=== PATIENT | female | born 1935 | race Caucasian/White ===

== ENCOUNTER 2016-06-03 17:39 | Inpatient (IN) ==
[~2016-06-03 17:39] MED LIST: Aminoglycoside Consult 1 EACH MC ONE
[2016-06-03 18:55] LABS: Magnesium 2.1 mg/dL (1.6-2.6); Phosphorous 2.7 mg/dL (2.3-4.7)
--- NOTE | 2016-06-03 19:01 | Emergency Department Note ---
Disposition Clinical Impression: Sepsis, UTI (urinary tract infection), Elevated troponin, Pneumonia, Severe sepsis with acute organ dysfunction, Acute kidney injury Altered mental state Qualifiers: Altered mental status type: unspecified Qualified Code(s): R41.82 - Altered mental status, unspecified Leukocytosis Qualifiers: Leukocytosis type: unspecified Qualified Code(s): D72.829 - Elevated white blood cell count, unspecified Disposition: Admitted As Inpatient Condition: Serious Time of Disposition: 19:00 General Adult HPI - General Chief complaint: ED Shortness of Breath/Dyspnea Stated complaint: YUSUF/lethargic Time Seen by Provider: 06/03/16 17:59 Source: EMS Limitations: no limitations Nursing Notes Reviewed: Yes Vital Signs Reviewed: Yes - History of Present Illness HPI Narrative: Patient is an 81-year-old female who [facility] with concern for possible infection. Her lab work today showed a leukocytosis of 25 with a shift. Concern for possible pneumonia versus urinary tract infection. Also state patient has had some lethargy and has been less responsive. 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 Patient is able to verbalize her name and where she is out. She does not know the date. Patient is normally able to talk more than she is today. She is able to nod her head yes and no and tells me no when asked if she is in any pain. Onset (ago): Just [employer] Pain Scale: 4 Improves with: nothing Worsens with: nothing Associated symptoms: Reports: denies other symptoms, fever/chills (subjective). Denies: chest pain, cough, diaphoresis, nausea/vomiting, shortness of breath Treatments Prior to Arrival: none - Related Data Home Medications Medication Instructions Recorded Confirmed Alprazolam [Xanax 0.25 MG Tablet] 0.25 mg PO Q4H PRN 11/03/14 06/03/16 Alprazolam [Xanax 0.5 MG Tablet] 0.5 mg PO HS 11/03/14 06/03/16 Fluticasone Propionate Nasal 1 spray NS DAILY 11/03/14 06/03/16 [Flonase] Furosemide [Lasix] 40 mg PO DAILY 11/03/14 06/03/16 HYDROcodone/Acet 5/325 mg [[place] 1 tab PO Q4HR PRN 11/03/14 06/03/16 5-325 mg] Insulin ASPART [NovoLOG] 2 - 10 unit SQ ACHS 11/03/14 06/03/16 Insulin Glargine,Hum.rec.anlog 50 unit SQ HS 11/03/14 06/03/16 [Lantus Solostar] Insulin NPH Hum/Reg Insulin Hm 45 unit SQ QAM 11/03/14 06/03/16 [Humulin 70-30 Vial] Latanoprost [Xalatan] 1 drop BOTH EYES HS 11/03/14 06/03/16 Levothyroxine [Synthroid] 25 mcg PO 0630 11/03/14 06/03/16 Magnesium Oxide [Mag-Ox] 400 mg PO BID 11/03/14 06/03/16 Montelukast [Singulair] 10 mg PO HS 11/03/14 06/03/16 Multivit-Min/FA/Ca Carb/Vit K 1 each PO DAILY 11/03/14 06/03/16 [Women's 50+ Daily Tablet] RisperiDONE [RisperDAL] 0.25 mg PO DAILY 11/03/14 06/03/16 Sertraline [Zoloft] 150 mg PO DAILY 11/03/14 06/03/16 Tiotropium [Spiriva] 18 mcg IH DAILY 11/03/14 06/03/16 Tolterodine Tartrate [Detrol] 2 mg PO BID #0 11/03/14 06/03/16 Zolpidem [Ambien] 10 mg PO HS PRN 11/03/14 06/03/16 Ascorbic Acid [Vitamin C] 500 mg PO BID 11/17/14 06/03/16 Cholecalciferol (Vitamin D3) 1,000 unit PO DAILY 11/17/14 06/03/16 [Vitamin D3] Ipratropium/Albuterol Neb [Duoneb] 3 ml IH TID 11/17/14 06/03/16 Omeprazole [PriLOSEC] 20 mg PO DAILY PRN 11/17/14 06/03/16 Potassium Chloride 10 meq PO DAILY 11/17/14 06/03/16 Benzocaine/Menthol Kobi [Cepacol 1 lozenge PO Q4H PRN 11/28/14 06/03/16 Sore Throat Lozenge] GuaiFENesin Liq [Robitussin Liq] 300 mg PO Q6HR PRN 11/28/14 06/03/16 Loratadine [Claritin] 10 mg PO DAILY PRN 11/28/14 06/03/16 Acetaminophen [Tylenol] 650 mg PO Q6H PRN 02/11/15 06/03/16 Acetylcysteine 600 mg PO TID 02/11/15 06/03/16 [J-Zhccpd-t-Cysteine] Alprazolam [Xanax 0.25 MG Tablet] 0.25 mg PO TID 02/11/15 06/03/16 DiphenhydraMINE [Benadryl] 25 mg PO Q6H PRN 02/11/15 06/03/16 L. Rhamnosus GG/Inulin [Culturelle 1 cap PO BID 02/11/15 06/03/16 Capsule] Simethicone [Gas-X] 80 mg PO BID PRN 02/11/15 06/03/16 Propylene Glycol/Peg 400 [Systane 1 drop BOTH EYES BID PRN 05/20/15 06/03/16 Gel Eye Drops] Propylene Glycol/Peg 400 [Systane 1 drop BOTH EYES Q4H PRN 05/20/15 06/03/16 Gel Eye Drops] Albuterol Neb [Proventil Neb] 2.5 mg IH Q2H PRN 06/03/16 06/03/16 Carvedilol 12.5 mg PO BID 06/03/16 06/03/16 Docusate [Colace] 100 mg PO BID 06/03/16 06/03/16 Fluticasone/Salmeterol [Advair 1 each IH BID 06/03/16 06/03/16 250-50 Diskus] Glimepiride [Amaryl] 1 mg PO QAM 06/03/16 06/03/16 Previous Rx's Medication Instructions Recorded Ferrous Sulfate 325 mg PO BIDWM #60 tablet 04/12/16 Allergies Allergy/AdvReac Type Severity Reaction Status Date / Time codeine Allergy unknown Verified 11/17/15 10:43 Penicillins Allergy unknown Verified 11/17/15 10:43 All systems ED: reviewed and negative except as stated. Past Medical History - Past Medical History Attestation: Yes The following information was validated with the patient. Source: patient Medical history: Reports: diabetes, glaucoma, renal disease Surgical history: Reports: other Psychiatric history: Reports: no psych history - Social History Smoking Status: Unknown if ever smoked Smokeless Tobacco Status: No Alcohol use: Reports: none Drug use: Reports: none Physical Exam - General Limitations: no limitations General appearance: alert, obese - Head Head exam: atraumatic, normocephalic, normal inspection - Eye Eye exam: Present: normal appearance, PERRL, EOMI - ENT ENT exam: normal exam, normal oropharynx, mucous membranes moist - Neck Neck exam: Present: normal inspection, full ROM, trachea midline - Chest Chest inspection: Present: normal inspection, symmetric chest wall rise - Respiratory Respiratory exam: Present: other (Course breath sounds bilaterally) - Cardiovascular Cardiovascular exam: Present: regular rate, normal rhythm, normal heart sounds - Abdominal Exam Abdominal exam: Present: soft, Non-Tender. Absent: tenderness, distention, guarding, rebound, rigidity - Extremities Exam Extremities exam: Present: normal inspection, full ROM. Absent: tenderness, pedal edema - Back Exam Back exam: Present: normal inspection, full ROM. Absent: tenderness - Neurological Exam Neurological exam: Present: alert - Psychiatric Psychiatric exam: Present: flat affect - Skin Skin exam: Present: warm, dry, intact, normal color Course Course Narrative: Patient seen and examined. [facility]. Has trach in place. Apparently has some altered mentation in that she is not speaking as much as she normally does. Concern from [facility]iary for infection. A septic workup initiated. - Reevaluation(s) Reevaluation #1: Labs, imaging pending. Patient signed out to oncoming resident Dr. Villa. Time: 19:00 Vital Signs Temperature 98.8 F 06/03/16 17:43 Pulse Rate 96 06/03/16 17:43 Respiratory Rate 18 06/03/16 17:43 Blood Pressure 110/82 06/03/16 17:43 O2 Sat by Pulse Oximetry 98 06/03/16 17:43 Temperature 98.3 F 06/06/16 16:09 Pulse Rate 84 06/06/16 16:09 Respiratory Rate 18 06/06/16 16:09 Blood Pressure 123/69 06/06/16 16:09 O2 Sat by Pulse Oximetry 95 06/06/16 16:09 Oxygen Delivery Oxygen Delivery Ventilator Medical Decision Making - Medical Records Medical records reviewed: Yes I reviewed the patient's medical records. - Lab Data Lab results reviewed: Yes I reviewed the patient's lab results. Result diagrams: 06/06/16 06:34 06/06/16 09:23 Lab Results 06/03/16 06/03/16 06/03/16 Range/Units 18:29 18:29 18:29 WBC (4.3-11.1) K/mcL RBC (3.82-4.97) M/mcL Hgb (11.5-15.4) g/dL Hct (35.3-44.9) % MCV (83.0-100.0) fL MCH (28.0-33.3) pg MCHC (31.6-35.5) g/dL RDW (11.5-14.5) % Plt Count (140-400) K/mcL MPV (9.4-12.4) fL Immature Gran % (0-4) % Seg Neutrophils % % Lymphocytes % % Monocytes % % Eosinophils % % Basophils % % Neutrophils # (1.6-8.9) K/mcL Lymphocytes # (0.6-4.6) K/mcL Monocytes # (0.0-1.3) K/mcL Eosinophils # (0.0-0.6) K/mcL Basophils # (0.0-0.2) K/mcL Sodium (136-145) mEq/L Potassium (3.5-4.5) mEq/L Chloride (98-109) mEq/L Carbon Dioxide (19-29) mEq/L BUN (7-20) mg/dL Creatinine (0.57-1.11) mg/dL Est GFR ( Amer) (> 60) Est GFR (Non-Af Amer) (> 60) BUN/Creatinine Ratio (6-26) Glucose (70-99) mg/dL Calculated Osmolality (280-300) Lactic Acid 1.4 (0.5-2.2) mmol/L Calcium (8.6-10.8) mg/dL Phosphorus 2.7 (2.3-4.7) mg/dL Magnesium 2.1 (1.6-2.6) mg/dL Troponin I 0.04 H* (0-0.03) ng/mL B-Natriuretic Peptide (0-100) pg/mL Urine Color (Yellow) Urine Clarity (Clear) Urine pH (5.0-8.0) pH Units Ur Specific [place] (1.010-1.025) Urine Protein (Neg-Trace) mg/dL Urine Glucose (UA) (Normal) mg/dL Urine Ketones (Negative) mg/dL Urine Blood (Negative) Urine Nitrite (Negative) Urine Bilirubin (Negative) Urine Urobilinogen (Normal) mg/dL Ur Leukocyte Esterase (Negative) Urine Microscopic RBC (0-3) per hpf Urine Microscopic WBC (0-3) per hpf Ur Squamous Epith Cells (None-Few) per lpf Calcium Oxalate Crystal Other Crystals Urine Bacteria (None-Few) per hpf Hyaline Casts (None-Few) per lpf Urine Starch Urine Yeast (None Seen) per hpf Ur Culture Indicated? (NO) 06/03/16 06/03/16 06/03/16 Range/Units 18:29 18:29 18:29 WBC 18.8 H (4.3-11.1) K/mcL RBC 4.13 (3.82-4.97) M/mcL Hgb 11.3 L (11.5-15.4) g/dL Hct 35.8 (35.3-44.9) % MCV 86.7 (83.0-100.0) fL MCH 27.4 L (28.0-33.3) pg MCHC 31.6 (31.6-35.5) g/dL RDW 17.0 H (11.5-14.5) % Plt Count 234 (140-400) K/mcL MPV 10.3 (9.4-12.4) fL Immature Gran % 0.5 (0-4) % Seg Neutrophils % 84.3 % Lymphocytes % 7.5 % Monocytes % 7.5 % Eosinophils % 0.1 % Basophils % 0.1 % Neutrophils # 15.8 H (1.6-8.9) K/mcL Lymphocytes # 1.4 (0.6-4.6) K/mcL Monocytes # 1.4 H (0.0-1.3) K/mcL Eosinophils # 0.0 (0.0-0.6) K/mcL Basophils # 0.0 (0.0-0.2) K/mcL Sodium 134 L (136-145) mEq/L Potassium 4.5 D (3.5-4.5) mEq/L Chloride 96 L (98-109) mEq/L Carbon Dioxide 24 (19-29) mEq/L BUN 58 H D (7-20) mg/dL Creatinine 3.39 H (0.57-1.11) mg/dL Est GFR ( Amer) 16 L (> 60) Est GFR (Non-Af Amer) 13 L (> 60) BUN/Creatinine Ratio 17 (6-26) Glucose 169 H (70-99) mg/dL Calculated Osmolality 298 (280-300) Lactic Acid (0.5-2.2) mmol/L Calcium 9.3 (8.6-10.8) mg/dL Phosphorus (2.3-4.7) mg/dL Magnesium (1.6-2.6) mg/dL Troponin I (0-0.03) ng/mL B-Natriuretic Peptide 75 (0-100) pg/mL Urine Color (Yellow) Urine Clarity (Clear) Urine pH (5.0-8.0) pH Units Ur Specific [place] (1.010-1.025) Urine Protein (Neg-Trace) mg/dL Urine Glucose (UA) (Normal) mg/dL Urine Ketones (Negative) mg/dL Urine Blood (Negative) Urine Nitrite (Negative) Urine Bilirubin (Negative) Urine Urobilinogen (Normal) mg/dL Ur Leukocyte Esterase (Negative) Urine Microscopic RBC (0-3) per hpf Urine Microscopic WBC (0-3) per hpf Ur Squamous Epith Cells (None-Few) per lpf Calcium Oxalate Crystal Other Crystals Urine Bacteria (None-Few) per hpf Hyaline Casts (None-Few) per lpf Urine Starch Urine Yeast (None Seen) per hpf Ur Culture Indicated? (NO) 06/03/16 Range/Units 19:05 WBC (4.3-11.1) K/mcL RBC (3.82-4.97) M/mcL Hgb (11.5-15.4) g/dL Hct (35.3-44.9) % MCV (83.0-100.0) fL MCH (28.0-33.3) pg MCHC (31.6-35.5) g/dL RDW (11.5-14.5) % Plt Count (140-400) K/mcL MPV (9.4-12.4) fL Immature Gran % (0-4) % Seg Neutrophils % % Lymphocytes % % Monocytes % % Eosinophils % % Basophils % % Neutrophils # (1.6-8.9) K/mcL Lymphocytes # (0.6-4.6) K/mcL Monocytes # (0.0-1.3) K/mcL Eosinophils # (0.0-0.6) K/mcL Basophils # (0.0-0.2) K/mcL Sodium (136-145) mEq/L Potassium (3.5-4.5) mEq/L Chloride (98-109) mEq/L Carbon Dioxide (19-29) mEq/L BUN (7-20) mg/dL Creatinine (0.57-1.11) mg/dL Est GFR ( Amer) (> 60) Est GFR (Non-Af Amer) (> 60) BUN/Creatinine Ratio (6-26) Glucose (70-99) mg/dL Calculated Osmolality (280-300) Lactic Acid (0.5-2.2) mmol/L Calcium (8.6-10.8) mg/dL Phosphorus (2.3-4.7) mg/dL Magnesium (1.6-2.6) mg/dL Troponin I (0-0.03) ng/mL B-Natriuretic Peptide (0-100) pg/mL Urine Color Dark Yellow (Yellow) Urine Clarity Turbid A (Clear) Urine pH 7.0 (5.0-8.0) pH Units Ur Specific [place] 1.017 (1.010-1.025) Urine Protein 100 H (Neg-Trace) mg/dL Urine Glucose (UA) Normal (Normal) mg/dL Urine Ketones Trace H (Negative) mg/dL Urine Blood Large H (Negative) Urine Nitrite Negative (Negative) Urine Bilirubin Small H (Negative) Urine Urobilinogen Normal (Normal) mg/dL Ur Leukocyte Esterase Large H (Negative) Urine Microscopic RBC TNTC H (0-3) per hpf Urine Microscopic WBC TNTC H (0-3) per hpf Ur Squamous Epith Cells Many H (None-Few) per lpf Calcium Oxalate Crystal Present Other Crystals Present Urine Bacteria Many H (None-Few) per hpf Hyaline Casts Moderate H (None-Few) per lpf Urine Starch Present Urine Yeast Moderate H (None Seen) per hpf Ur Culture Indicated? YES A (NO) - Radiology Data Radiology results reviewed: Yes I reviewed the patient's radiology results. Chest X-Ray 06/03/16 17:59 IMPRESSION: No significant change in the appearance of the chest with reticular opacities that may represent chronic lung change. D/ / Bryant Santillan MD / Bryant Santillan MD Interpreting Provider: Bryant Santillan MD - EKG Data EKG #1 EKG attestation: Yes I reviewed and interpreted this EKG. Attestation Statement - Attestation Attestation: I examined this patient and my medical decision-making was reviewed with the Resident Physician. I agree with the documented findings, disposition and treatment plan as described except to the extent set forth below. Evaluated by Dr. Donato and myself immediately upon arrival to ED. Hemodynamically stable. Work up initiated, pt checked out to Dr. Edouard at change of shift.
[2016-06-03 19:16] LABS: Bilirubin,Urine Small (Negative); Blood,Urine Large (Negative); Clarity,Urine Turbid (Clear); Color,Urine Dark Yellow (Yellow); Glucose,Urine (UA) Normal (Normal); Ketones,Urine Trace mg/dL (Negative); Leukocyte Esterase,Urine Large (Negative); Nitrite,Urine Negative (Negative); Protein,Urine 100 mg/dL (Neg-Trace); Specific Gravity,Urine 1.017 (1.010-1.025); Urobilinogen,Urine Normal (Normal)
[2016-06-03 19:18] LABS: Bacteria,Urine Many per hpf (None-Few); Hyaline Casts,Urine Moderate per lpf (None-Few); Squamous Epithelial Cell,Urine Many per lpf (None-Few); WBC,Urine TNTC per hpf (0-3)
[2016-06-03 19:38] LABS: RBC,Urine TNTC per hpf (0-3)
[2016-06-03 19:44] LABS: Basophils % 0.1 %; Eosinophils % 0.1 %; Hematocrit 35.8 % (35.3-44.9); Hemoglobin 11.3 g/dL (11.5-15.4); Immature Granulocytes % 0.5 % (0-4); Lymphocytes # 1.4 K/mcL (0.6-4.6); Lymphocytes % 7.5 %; Mean Corpuscular HGB Conc 31.6 g/dL (31.6-35.5); Mean Corpuscular Hemoglobin 27.4 pg (28.0-33.3); Mean Corpuscular Volume 86.7 fL (83.0-100.0); Mean Platelet Volume 10.3 fL (9.4-12.4); Monocytes # 1.4 K/mcL (0.0-1.3); Monocytes % 7.5 %; Neutrophils # 15.8 K/mcL (1.6-8.9); Platelet Count 234 K/mcL (140-400); Red Blood Count 4.13 M/mcL (3.82-4.97); Segmented Neutrophils % 84.3 %
[2016-06-03 19:44] LABS: Other Crystals,Urine Present
[2016-06-03 19:45] LABS: Calcium Oxalate Crystals,Urine Present
[2016-06-03 19:46] LABS: Yeast,Urine Moderate per hpf (None Seen)
[2016-06-03 19:53] LABS: Calcium 9.3 mg/dL (8.6-10.8); Potassium 4.5 mEq/L (3.5-4.5)
--- NOTE | 2016-06-03 19:55 | Emergency Department Note ---
Disposition Clinical Impression: Elevated troponin, Severe sepsis with acute organ dysfunction, Acute kidney injury Altered mental state Qualifiers: Altered mental status type: unspecified Qualified Code(s): R41.82 - Altered mental status, unspecified Leukocytosis Qualifiers: Leukocytosis type: unspecified Qualified Code(s): D72.829 - Elevated white blood cell count, unspecified Sepsis Qualifiers: Sepsis type: sepsis due to unspecified organism Qualified Code(s): A41.9 - Sepsis, unspecified organism UTI (urinary tract infection) Qualifiers: Urinary tract infection type: site unspecified Hematuria presence: without hematuria Qualified Code(s): N39.0 - Urinary tract infection, site not specified Pneumonia Qualifiers: Pneumonia type: due to unspecified organism Laterality: unspecified laterality Lung location: unspecified part of lung Qualified Code(s): J18.9 - Pneumonia, unspecified organism Disposition: Admitted As Inpatient Condition: Serious Referrals: NO,PCP [Primary Care Provider] - Forms: ED Satisfaction Letter Time of Disposition: 21:16 General Adult HPI - General Chief complaint: ED Shortness of Breath/Dyspnea Stated complaint: YUSUF/lethargic Time Seen by Provider: 06/03/16 17:59 Source: EMS Mode of arrival: ambulatory Limitations: no limitations Nursing Notes Reviewed: Yes Vital Signs Reviewed: Yes - History of Present Illness HPI Narrative: Patient was a sign out from the day team Dr. Donato and Dr. Pugh. Please see their notes for further details. Patient is 81 yo female with PMHx of chronic respiratory failure and trach dependent, type 2 diabetes, chronic kidney disease , glaucoma, arthritis, hyperlipidemia. She presents today as a transfer from [facility]. Patient had labwork recently done that showed an elevated white blood cell count of 25. She is also "not been acting like herself." She was transferred here due to altered mental status and fear of infection, possible pneumonia and UTI. On exam, patient is nonverbal, but she shakes her head no to chest pain, shortness of breath, nausea, vomiting, fevers , diarrhea, burning with urination. Labwork was underway when patient was signed out to me. She does have signs of UTI. Septic workup was underway. Pain Scale: 4 - Related Data Home Medications Medication Instructions Recorded Confirmed Alprazolam [Xanax 0.25 MG Tablet] 0.25 mg PO Q4H PRN 11/03/14 11/18/15 Alprazolam [Xanax 0.5 MG Tablet] 0.5 mg PO HS 11/03/14 11/18/15 Detrol 2 mg PO BID 11/03/14 11/18/15 Fluticasone Propionate Nasal 1 spray NS DAILY 11/03/14 11/18/15 [Flonase] Furosemide [Lasix] 40 mg PO DAILY 11/03/14 11/18/15 HYDROcodone/Acet 5/325 mg [[place] 1 tab PO Q4HR PRN 11/03/14 11/18/15 5-325 mg] Insulin ASPART [NovoLOG] 0 unit SQ TIDWM 11/03/14 11/18/15 Insulin Glargine,Hum.rec.anlog 60 unit SQ ONCE 11/03/14 11/18/15 [Lantus Solostar] Insulin NPH Hum/Reg Insulin Hm 50 unit SQ DAILY 11/03/14 11/18/15 [Humulin 70-30 Vial] Latanoprost [Xalatan] 1 drop RIGHT EYE HS 11/03/14 11/18/15 Levothyroxine [Synthroid] 25 mcg PO 0630 11/03/14 11/18/15 Magnesium Oxide [Mag-Ox] 400 mg PO BID 11/03/14 11/18/15 Montelukast [Singulair] 10 mg PO DAILY 11/03/14 11/18/15 Multivit-Min/FA/Ca Carb/Vit K 1 each PO DAILY 11/03/14 11/18/15 [Women's 50+ Daily Tablet] RisperiDONE [RisperDAL] 0.25 mg PO DAILY 11/03/14 11/18/15 Sertraline [Zoloft] 150 mg PO DAILY 11/03/14 11/18/15 Tiotropium [Spiriva] 18 mcg IH DAILY 11/03/14 11/18/15 Zolpidem [Ambien] 10 mg PO HS PRN 11/03/14 11/18/15 Ascorbic Acid [Vitamin C] 500 mg PO BID 11/17/14 11/18/15 Carvedilol [Coreg] 12.5 mg PO BID 11/17/14 11/18/15 Cholecalciferol (Vitamin D3) 1,000 unit PO BID 11/17/14 11/18/15 [Vitamin D3] Fluticasone/Salmeterol [Advair 1 each IH BID 11/17/14 11/18/15 100-50 Diskus] Ipratropium/Albuterol Neb [Duoneb] 3 ml IH Q6HR 11/17/14 11/18/15 Omeprazole [PriLOSEC] 20 mg PO DAILY 11/17/14 11/18/15 Potassium Chloride 10 meq PO DAILY 11/17/14 11/18/15 Benzocaine/Menthol Kobi [Cepacol 3 mg PO Q4H PRN 11/28/14 11/18/15 Sore Throat Lozenge] GuaiFENesin Liq [Robitussin Liq] 300 mg PO Q6HR PRN 11/28/14 11/18/15 Loratadine [Claritin] 10 mg PO DAILY 11/28/14 11/18/15 Acetaminophen [Tylenol] 650 mg PO Q6H PRN 02/11/15 11/18/15 Acetylcysteine 600 mg PO TID 02/11/15 11/18/15 [H-Ihvvbz-e-Cysteine] Alprazolam [Xanax 0.25 MG Tablet] 0.25 mg PO TID 02/11/15 11/18/15 DiphenhydraMINE [Benadryl] 1 tab PO Q6H PRN 02/11/15 11/18/15 L. Rhamnosus GG/Inulin [Culturelle 1 cap PO BID 02/11/15 11/18/15 Capsule] Simethicone [Gas-X] 1 tab PO BID PRN 02/11/15 11/18/15 Systane 1 drop OP BID 05/20/15 11/18/15 Systane 1 drop OP Q4H PRN 05/20/15 11/18/15 Previous Rx's Medication Instructions Recorded Ferrous Sulfate 325 mg PO BIDWM #60 tablet 04/12/16 Allergies Allergy/AdvReac Type Severity Reaction Status Date / Time codeine Allergy unknown Verified 11/17/15 10:43 Penicillins Allergy unknown Verified 11/17/15 10:43 Constitutional: Denies: fever Eyes: Denies: eye pain ENT ED: Denies: ear pain Cardiovascular: Denies: chest pain Respiratory: Denies: cough, dyspnea, wheezes Gastrointestinal: Denies: abdominal pain, nausea, vomiting, diarrhea Genitourinary: Denies: urgency, dysuria, frequency Musculoskeletal: Denies: back pain, neck pain Integumentary: Denies: rash Neurological: Denies: headache, weakness Psychiatric: Denies: anxiety, depression Endocrine: Denies: fatigue Past Medical History - Past Medical History Attestation: Yes The following information was validated with the patient. Medical history: Reports: diabetes, glaucoma, renal disease Surgical history: Reports: other Psychiatric history: Reports: no psych history - Social History Smoking Status: Unknown if ever smoked Smokeless Tobacco Status: No Alcohol use: Reports: none Drug use: Reports: none Physical Exam - General Limitations: no limitations General appearance: alert, in no apparent distress - Head Head exam: atraumatic, normocephalic, normal inspection - Eye Eye exam: Present: normal appearance, PERRL, EOMI - ENT ENT exam: normal oropharynx, mucous membranes moist, other (Trach placed, vent dependent) - Neck Neck exam: Present: full ROM, trachea midline - Chest Chest inspection: Present: normal inspection, symmetric chest wall rise - Respiratory Respiratory exam: Present: other (Course lung sounds in bilateral lower lobes) - Cardiovascular Cardiovascular exam: Present: regular rate, irregular rhythm, normal heart sounds - Abdominal Exam Abdominal exam: Present: soft, Non-Tender. Absent: tenderness, distention, guarding, rebound, rigidity - Extremities Exam Extremities exam: Present: normal inspection, full ROM. Absent: tenderness, pedal edema - Neurological Exam Neurological exam: Present: alert. Absent: motor sensory deficit - Psychiatric Psychiatric exam: Present: normal affect, normal mood - Skin Skin exam: Present: warm, dry, intact, normal color Course Course Narrative: His recent vitals were within normal limits. On physical exam, patient is alert , able to answer questions properly by shaking her head yes and no. She is vent dependent. Chest x-ray negative for any acute findings. She does have a leukocytosis 18.8, acute kidney injury with a creatinine of 3.39, elevated troponin 0.04 likely due to demand ischemia in setting of sepsis, also has signs of UTI. The rest of the septic workup was ordered including a lactic acid , blood cultures. Think my son and meropenem were ordered for broad-spectrum coverage. Patient was not able to be given Zosyn due to penicillin allergy. Currently has stable vitals. We will give the patient 30 mL per kilogram fluid bolus per sepsis protocol. Plan to admit. Vital Signs Temperature 98.8 F 06/03/16 17:43 Pulse Rate 96 06/03/16 17:43 Respiratory Rate 18 06/03/16 17:43 Blood Pressure 110/82 06/03/16 17:43 O2 Sat by Pulse Oximetry 98 06/03/16 17:43 Temperature 98.8 F 06/03/16 17:43 Pulse Rate 102 06/03/16 21:41 Respiratory Rate 20 06/03/16 21:41 Blood Pressure 93/61 06/03/16 21:41 O2 Sat by Pulse Oximetry 94 L 06/03/16 21:41 Oxygen Delivery Oxygen Delivery Ventilator Medical Decision Making - [facility] Narrative Medical decision making narrative: His recent vitals were within normal limits. On physical exam, patient is alert , able to answer questions properly by shaking her head yes and no. She is vent dependent. Chest x-ray negative for any acute findings. She does have a leukocytosis 18.8, acute kidney injury with a creatinine of 3.39, elevated troponin 0.04 likely due to demand ischemia in setting of sepsis, also has signs of UTI. The rest of the septic workup was ordered including a lactic acid , blood cultures. Think my son and meropenem were ordered for broad-spectrum coverage. Patient was not able to be given Zosyn due to penicillin allergy. Currently has stable vitals. We will give the patient 30 mL per kilogram fluid bolus per sepsis protocol. Plan to admit. - Medical Records Medical records reviewed: Yes I reviewed the patient's medical records. - Lab Data Lab results reviewed: Yes I reviewed the patient's lab results. Result diagrams: 06/03/16 18:29 06/03/16 18:29 Lab Results 06/03/16 06/03/16 06/03/16 Range/Units 18:29 18:29 18:29 WBC (4.3-11.1) K/mcL RBC (3.82-4.97) M/mcL Hgb (11.5-15.4) g/dL Hct (35.3-44.9) % MCV (83.0-100.0) fL MCH (28.0-33.3) pg MCHC (31.6-35.5) g/dL RDW (11.5-14.5) % Plt Count (140-400) K/mcL MPV (9.4-12.4) fL Immature Gran % (0-4) % Seg Neutrophils % % Lymphocytes % % Monocytes % % Eosinophils % % Basophils % % Neutrophils # (1.6-8.9) K/mcL Lymphocytes # (0.6-4.6) K/mcL Monocytes # (0.0-1.3) K/mcL Eosinophils # (0.0-0.6) K/mcL Basophils # (0.0-0.2) K/mcL Sodium (136-145) mEq/L Potassium (3.5-4.5) mEq/L Chloride (98-109) mEq/L Carbon Dioxide (19-29) mEq/L BUN (7-20) mg/dL Creatinine (0.57-1.11) mg/dL Est GFR ( Amer) (> 60) Est GFR (Non-Af Amer) (> 60) BUN/Creatinine Ratio (6-26) Glucose (70-99) mg/dL Calculated Osmolality (280-300) Lactic Acid 1.4 (0.5-2.2) mmol/L Calcium (8.6-10.8) mg/dL Phosphorus 2.7 (2.3-4.7) mg/dL Magnesium 2.1 (1.6-2.6) mg/dL Troponin I 0.04 H* (0-0.03) ng/mL B-Natriuretic Peptide (0-100) pg/mL Urine Color (Yellow) Urine Clarity (Clear) Urine pH (5.0-8.0) pH Units Ur Specific Marble (1.010-1.025) Urine Protein (Neg-Trace) mg/dL Urine Glucose (UA) (Normal) mg/dL Urine Ketones (Negative) mg/dL Urine Blood (Negative) Urine Nitrite (Negative) Urine Bilirubin (Negative) Urine Urobilinogen (Normal) mg/dL Ur Leukocyte Esterase (Negative) Urine Microscopic RBC (0-3) per hpf Urine Microscopic WBC (0-3) per hpf Ur Squamous Epith Cells (None-Few) per lpf Calcium Oxalate Crystal Other Crystals Urine Bacteria (None-Few) per hpf Hyaline Casts (None-Few) per lpf Urine Starch Urine Yeast (None Seen) per hpf Ur Culture Indicated? (NO) 06/03/16 06/03/16 06/03/16 Range/Units 18:29 18:29 18:29 WBC 18.8 H (4.3-11.1) K/mcL RBC 4.13 (3.82-4.97) M/mcL Hgb 11.3 L (11.5-15.4) g/dL Hct 35.8 (35.3-44.9) % MCV 86.7 (83.0-100.0) fL MCH 27.4 L (28.0-33.3) pg MCHC 31.6 (31.6-35.5) g/dL RDW 17.0 H (11.5-14.5) % Plt Count 234 (140-400) K/mcL MPV 10.3 (9.4-12.4) fL Immature Gran % 0.5 (0-4) % Seg Neutrophils % 84.3 % Lymphocytes % 7.5 % Monocytes % 7.5 % Eosinophils % 0.1 % Basophils % 0.1 % Neutrophils # 15.8 H (1.6-8.9) K/mcL Lymphocytes # 1.4 (0.6-4.6) K/mcL Monocytes # 1.4 H (0.0-1.3) K/mcL Eosinophils # 0.0 (0.0-0.6) K/mcL Basophils # 0.0 (0.0-0.2) K/mcL Sodium 134 L (136-145) mEq/L Potassium 4.5 D (3.5-4.5) mEq/L Chloride 96 L (98-109) mEq/L Carbon Dioxide 24 (19-29) mEq/L BUN 58 H D (7-20) mg/dL Creatinine 3.39 H (0.57-1.11) mg/dL Est GFR ( Amer) 16 L (> 60) Est GFR (Non-Af Amer) 13 L (> 60) BUN/Creatinine Ratio 17 (6-26) Glucose 169 H (70-99) mg/dL Calculated Osmolality 298 (280-300) Lactic Acid (0.5-2.2) mmol/L Calcium 9.3 (8.6-10.8) mg/dL Phosphorus (2.3-4.7) mg/dL Magnesium (1.6-2.6) mg/dL Troponin I (0-0.03) ng/mL B-Natriuretic Peptide 75 (0-100) pg/mL Urine Color (Yellow) Urine Clarity (Clear) Urine pH (5.0-8.0) pH Units Ur Specific Marble (1.010-1.025) Urine Protein (Neg-Trace) mg/dL Urine Glucose (UA) (Normal) mg/dL Urine Ketones (Negative) mg/dL Urine Blood (Negative) Urine Nitrite (Negative) Urine Bilirubin (Negative) Urine Urobilinogen (Normal) mg/dL Ur Leukocyte Esterase (Negative) Urine Microscopic RBC (0-3) per hpf Urine Microscopic WBC (0-3) per hpf Ur Squamous Epith Cells (None-Few) per lpf Calcium Oxalate Crystal Other Crystals Urine Bacteria (None-Few) per hpf Hyaline Casts (None-Few) per lpf Urine Starch Urine Yeast (None Seen) per hpf Ur Culture Indicated? (NO) 06/03/16 Range/Units 19:05 WBC (4.3-11.1) K/mcL RBC (3.82-4.97) M/mcL Hgb (11.5-15.4) g/dL Hct (35.3-44.9) % MCV (83.0-100.0) fL MCH (28.0-33.3) pg MCHC (31.6-35.5) g/dL RDW (11.5-14.5) % Plt Count (140-400) K/mcL MPV (9.4-12.4) fL Immature Gran % (0-4) % Seg Neutrophils % % Lymphocytes % % Monocytes % % Eosinophils % % Basophils % % Neutrophils # (1.6-8.9) K/mcL Lymphocytes # (0.6-4.6) K/mcL Monocytes # (0.0-1.3) K/mcL Eosinophils # (0.0-0.6) K/mcL Basophils # (0.0-0.2) K/mcL Sodium (136-145) mEq/L Potassium (3.5-4.5) mEq/L Chloride (98-109) mEq/L Carbon Dioxide (19-29) mEq/L BUN (7-20) mg/dL Creatinine (0.57-1.11) mg/dL Est GFR ( Amer) (> 60) Est GFR (Non-Af Amer) (> 60) BUN/Creatinine Ratio (6-26) Glucose (70-99) mg/dL Calculated Osmolality (280-300) Lactic Acid (0.5-2.2) mmol/L Calcium (8.6-10.8) mg/dL Phosphorus (2.3-4.7) mg/dL Magnesium (1.6-2.6) mg/dL Troponin I (0-0.03) ng/mL B-Natriuretic Peptide (0-100) pg/mL Urine Color Dark Yellow (Yellow) Urine Clarity Turbid A (Clear) Urine pH 7.0 (5.0-8.0) pH Units Ur Specific Marble 1.017 (1.010-1.025) Urine Protein 100 H (Neg-Trace) mg/dL Urine Glucose (UA) Normal (Normal) mg/dL Urine Ketones Trace H (Negative) mg/dL Urine Blood Large H (Negative) Urine Nitrite Negative (Negative) Urine Bilirubin Small H (Negative) Urine Urobilinogen Normal (Normal) mg/dL Ur Leukocyte Esterase Large H (Negative) Urine Microscopic RBC TNTC H (0-3) per hpf Urine Microscopic WBC TNTC H (0-3) per hpf Ur Squamous Epith Cells Many H (None-Few) per lpf Calcium Oxalate Crystal Present Other Crystals Present Urine Bacteria Many H (None-Few) per hpf Hyaline Casts Moderate H (None-Few) per lpf Urine Starch Present Urine Yeast Moderate H (None Seen) per hpf Ur Culture Indicated? YES A (NO) - Radiology Data Radiology results reviewed: Yes I reviewed the patient's radiology results. Chest X-Ray 06/03/16 17:59 IMPRESSION: No significant change in the appearance of the chest with reticular opacities that may represent chronic lung change. D/ / Bryant Santillan MD / Bryant Santillan MD Interpreting Provider: Bryant Santillan MD - EKG Data EKG #1 EKG attestation: Yes I reviewed and interpreted this EKG. EKG results narrative: 06/03/2016 at 17:52. EKG shows A. fib. Rate 98. QRS 75. QTc 379. Acute ST elevation or depression. Normal axis. Unchanged from previous EKG on 06/08/2013 Critical Care Time Critical Care Time: Yes Total Critical Care Time: 45 Attestation: Critical care performed: Time is exclusive of separately billable procedures. Time includes: direct patient care, patient reassessment, coordination of patient care, interpretation of data (laboratory data, radiology data, and respiratory data), review of patient's medical records, medical consultation and documentation of patient care. Procedures included in critical care time: Procedures excluded from critical care time: S.B.Henok - Berkley.Gisella Situation: Demographics, MOA Background: Presenting Complaint, Relevant PMH, Meds, & Allergies Assessment: Vital Signs, Course and respsone to treatment, Exam Concerns, Patient/Family Expectation, Pertinant Lab Results, Outstanding Labs Recommendation: Barrier(s) to disposition, Recommendation based on pending studies, treatments, or consults SMartha Report Given to: Dr. Carrillo/Susi Calvillo Repor Time: 20:16 Attestation Statement - Attestation Attestation: I, Jericho Edouard MD, personally performed a history and physical exam of the patient and discussed their management with the resident. I reviewed the resident's note and agree with the documented findings, medical decision making , and plan of care. This patient was signed out at shift change from Dr. Pugh and Dr. Donato. Please refer to their notes for complete details of history and physical examination. Patient sent from a alf because of weakness and lethargic. She had lab work done there this morning which showed a WBC of 25 with 20% bands. No reported fever. She has a Henderson catheter and a permanent tracheostomy and is on a ventilator. On examination patient is a well-developed obese elderly female in no acute distress. She is alert and responds appropriately and follows commands. There are coarse breath sounds bilaterally but no wheezes. Heart regular rate and rhythm. Abdomen soft with normal bowel sounds. No pedal edema. Labs reviewed. WBC and bandemia have improved but still present. Patient has worsening acute kidney injury. The hospitalist, Dr. Goldman, was consulted and accepted admission of the patient.
[2016-06-03] MEDS ORDERED: Vancomycin 1,250 MG in D5% in Water 250 ML IVPB SCH (20:00)
[2016-06-03] MEDS ORDERED: Vancomycin 1,500 MG in D5% in Water 250 ML IVPB ONE (21:00)
[2016-06-03] MEDS: 0.9 % Sodium Chloride 1,000 ML IVC SCH (21:31)
[2016-06-03] MEDS ORDERED: *HR* Promethazine 25 MG/ML VIAL IVP PRN (23:32)
[2016-06-03] MEDS ORDERED: Naloxone 0.4 MG/ML INJ IVP PRN (23:32)
--- NOTE | 2016-06-03 23:33 | Internal Med History&Physical ---
<ArtemioGina Ann - Last Filed: 06/04/16 00:39> Date of Encounter: 06/03/16 Time of Encounter: 22:59 Assessment and Plan (1) Severe sepsis with acute organ dysfunction Current visit: Yes Status: Acute likely urinary system related doubt pneumonia continue vivian d/c vanc due to renal fxn IVF monitor renal fxn change maciel catheter, replace and recheck urine flu swab sputum and blood ctx supportive care (2) Ervxa-op-yrwleva kidney injury Current visit: Yes Status: Acute likely etiologies dehydration, UTI, obstructive renal stone renal US for possible hydronephrosis may need nephro consult depending on clinic improvement IVF hyperkalemia improved avoid nephrotoxin (3) UTI (urinary tract infection) Current visit: No Status: Acute +urine will change maciel and do second urine cont abx Qualifiers: Urinary tract infection type: site unspecified Hematuria presence: without hematuria Qualified Code(s): N39.0 - Urinary tract infection, site not specified (4) Chronic respiratory failure with hypoxia Current visit: Yes Status: Acute compensated continue home vent settings bronchodilator therapy (5) Elevated troponin Current visit: Yes Status: Acute .04 likely demand no change in EXG will trend troponins tele (6) Leukocytosis Current visit: Yes Status: Acute like related to UTI trending down cont abx Qualifiers: Leukocytosis type: unspecified Qualified Code(s): D72.829 - Elevated white blood cell count, unspecified (7) Diabetes Current visit: No Status: Acute NPO SSC Qualifiers: Diabetes mellitus type: type 1 Diabetes mellitus complication status: with kidney complications Diabetes mellitus complication detail: with chronic kidney disease Chronic kidney disease stage: stage 2 (mild) Qualified Code(s ): E10.22 - Type 1 diabetes mellitus with diabetic chronic kidney disease; N18.2 - Chronic kidney disease, stage 2 (mild) (8) Hypothyroid Current visit: No Status: Acute Qualifiers: Hypothyroidism type: acquired Qualified Code(s): E03.9 - Hypothyroidism, unspecified (9) Umbilical hernia Current visit: No Status: Chronic Internal Medicine - H&P: HPI Chief complaint: lethargy Admitted From: Emergency Dept Plans for Post Hospital Care: Transfer Longterm Facility History of present illness: Ms. Moses is a 81 year old female with c/o lethargy and decreased responsiveness per nursing facility. PMHx vent dependant chronic respiratory failure with trach, COPD, insulin dependant DMII,CKD nonverbal secondary to trach does appear to be confused, is able to respond to yes/no questions by shaking head. Pt acknowledges some nausea, and burning with urination. Denies trauma, falls, fever, chills, CP, SOB, increased work of breathing, numbness/ tingling. Past Med Surg Social Fam HX - Past Medical History Medical history: COPD, diabetes, GERD, glaucoma, hyperlipidemia, hypertension, kidney stones, renal disease, thyroid disease, other (ventilator dependant) Psychiatric history: anxiety, depression - Past Surgical History Surgical History: other - Social History Smoking Status: Unknown if ever smoked Smokeless Tobacco Status: No Alcohol use: none Drug use: none Internal Medicine - H&P: Meds Alprazolam [Xanax 0.25 MG Tablet] 0.25 mg PO Q4H PRN 11/03/14 [History] Alprazolam [Xanax 0.5 MG Tablet] 0.5 mg PO HS 11/03/14 [History] Fluticasone Propionate Nasal [Flonase] 1 spray NS DAILY 11/03/14 [History] Furosemide [Lasix] 40 mg PO DAILY 11/03/14 [History] HYDROcodone/Acet 5/325 mg [[place] 5-325 mg] 1 tab PO Q4HR PRN 11/03/14 [History] Insulin ASPART [NovoLOG] 2 - 10 unit SQ ACHS 11/03/14 [History] Insulin Glargine,Hum.rec.anlog [Lantus Solostar] 50 unit SQ HS 11/03/14 [History ] Insulin NPH Hum/Reg Insulin Hm [Humulin 70-30 Vial] 45 unit SQ QAM 11/03/14 [ History] Latanoprost [Xalatan] 1 drop BOTH EYES HS 11/03/14 [History] Levothyroxine [Synthroid] 25 mcg PO 0630 11/03/14 [History] Magnesium Oxide [Mag-Ox] 400 mg PO BID 11/03/14 [History] Montelukast [Singulair] 10 mg PO HS 11/03/14 [History] Multivit-Min/FA/Ca Carb/Vit K [Women's 50+ Daily Tablet] 1 each PO DAILY [History] RisperiDONE [RisperDAL] 0.25 mg PO DAILY 11/03/14 [History] Sertraline [Zoloft] 150 mg PO DAILY 11/03/14 [History] Tiotropium [Spiriva] 18 mcg IH DAILY 11/03/14 [History] Tolterodine Tartrate [Detrol] 2 mg PO BID #0 11/03/14 [History] Zolpidem [Ambien] 10 mg PO HS PRN 11/03/14 [History] Ascorbic Acid [Vitamin C] 500 mg PO BID 11/17/14 [History] Cholecalciferol (Vitamin D3) [Vitamin D3] 1,000 unit PO DAILY 11/17/14 [History] Ipratropium/Albuterol Neb [Duoneb] 3 ml IH TID 11/17/14 [History] Omeprazole [PriLOSEC] 20 mg PO DAILY PRN 11/17/14 [History] Potassium Chloride 10 meq PO DAILY 11/17/14 [History] Benzocaine/Menthol Kobi [Cepacol Sore Throat Lozenge] 1 lozenge PO Q4H PRN [History] GuaiFENesin Liq [Robitussin Liq] 300 mg PO Q6HR PRN 11/28/14 [History] Loratadine [Claritin] 10 mg PO DAILY PRN 11/28/14 [History] Acetaminophen [Tylenol] 650 mg PO Q6H PRN 02/11/15 [History] Acetylcysteine [F-Ixyzcm-l-Cysteine] 600 mg PO TID 02/11/15 [History] Alprazolam [Xanax 0.25 MG Tablet] 0.25 mg PO TID 02/11/15 [History] DiphenhydraMINE [Benadryl] 25 mg PO Q6H PRN 02/11/15 [History] L. Rhamnosus GG/Inulin [Culturelle Capsule] 1 cap PO BID 02/11/15 [History] Simethicone [Gas-X] 80 mg PO BID PRN 02/11/15 [History] Propylene Glycol/Peg 400 [Systane Gel Eye Drops] 1 drop BOTH EYES BID PRN [History] Propylene Glycol/Peg 400 [Systane Gel Eye Drops] 1 drop BOTH EYES Q4H PRN [History] Ferrous Sulfate 325 mg PO BIDWM #60 tablet 04/12/16 [Rx] Albuterol Neb [Proventil Neb] 2.5 mg IH Q2H PRN 06/03/16 [History] Carvedilol 12.5 mg PO BID 06/03/16 [History] Docusate [Colace] 100 mg PO BID 06/03/16 [History] Fluticasone/Salmeterol [Advair 250-50 Diskus] 1 each IH BID 06/03/16 [History] Glimepiride [Amaryl] 1 mg PO QAM 06/03/16 [History] Allergies codeine Allergy (Verified 11/17/15 10:43) unknown Penicillins Allergy (Verified 11/17/15 10:43) unknown ROS unobtainable: due to endotracheal tube All Systems PM: A 10-system review of systems was performed and is negative for pertinent findings except as documented above in the HPI. - Constitutional Constitutional: lethargy, no chills, no fever(s), no falls, no night sweats - EENT Eyes: no change in vision, no discharge, no pain, no photophobia - Cardiovascular Cardiovascular ROS IM: no chest pain, no diaphoresis, no dyspnea, no lightheadedness, no palpitations, no syncope - Respiratory Respiratory: no cough, no dyspnea, no hemoptysis, no wheezing, no pain on inspiration, no excessive phlegm production - Gastrointestinal Gastrointestinal: nausea, no abdominal pain, no vomiting - Genitourinary Genitourinary: dysuria - Musculoskeletal Musculoskeletal ROS IM: no numbness, no tingling - Neurological Neurological ROS: no confusion, no convulsions, no focal weakness, no frequent falls, no numbness, no tingling, no tremor(s) - Constitutional Vitals: Temp Pulse Resp BP Pulse Ox 98.8 F 102 20 93/61 94 L 06/03/16 17:43 06/03/16 21:41 06/03/16 21:41 06/03/16 21:41 06/03/16 21:41 General appearance: Present: cooperative, no acute distress, obese, answers questions appropriately Exam: limited by trach - Head Head exam: Present: atraumatic, normocephalic - Eye Eye exam: Present: EOMI, PERRL - ENT ENT exam: Present: mucous membranes moist Additional comments: trach site C/D/I without purulent drainage - Neck Neck exam general surgery: Present: trachea midline (with trach inplace no purulent discharge) - Respiratory Respiratory exam: Present: decreased breath sounds (course). Absent: accessory muscle use, chest wall tenderness, respiratory distress - Expanded Respiratory Exam Location: decreased breath sounds: Right, Left (lower lung scott) - Cardiovascular Cardiovascular exam: Present: RRR, +S1, +S2. Absent: diastolic murmur, gallop, rubs, systolic murmur - GI/Abdominal GI/Abdominal exam: Present: normal bowel sounds, soft, no peritoneal signs. Absent: distended, tenderness - Extremities Exam Extremities exam: Present: calf tenderness, warm, radial pulses palpable and symetrical - Neurological Exam Neurological exam: Present: alert, CN II-XII intact, speech deficit (secondary to trach). Absent: facial droop Internal Med - H&P Results - Labs CBC & Chem 7: 06/03/16 18:29 06/03/16 18:29 <Alan Loza - Last Filed: 06/04/16 01:10> Internal Medicine - H&P: HPI History of present illness: Ms. Moses was sent by [facility] for reported concerns of altered mental status and decreased responsiveness today. Per my questions, she denies any complaints, denies cough, congestion, or any respiratory difficulties. She admits that she is ventilator dependent. Other history as per Dr. Ulloa. Past Med Surg Social Fam HX - Family History Mother History Unknown: Yes Father History Unknown: Yes - Constitutional Vitals: Temp Pulse Resp BP Pulse Ox 98.3 F 91 16 93/56 95 06/04/16 00:29 06/04/16 00:29 06/04/16 00:29 06/04/16 00:29 06/04/16 00:29 General appearance: Present: no acute distress - Head Head exam: Present: atraumatic, normal inspection - ENT Additional comments: no purulence or drainage at trach site - Respiratory Respiratory exam: Present: CTAB, rhonchi (few coarse rhonchi; otherwise clear). Absent: respiratory distress - Cardiovascular Cardiovascular exam: Present: RRR, +S1, +S2 - GI/Abdominal GI/Abdominal exam: Present: soft. Absent: tenderness - Back Exam Back exam: Absent: CVA tenderness (L), CVA tenderness (R) - Psychiatric Psychiatric exam: Present: flat affect. Absent: anxious - Skin Skin exam: Present: dry, warm. Absent: rash Additional comments: + skin tenting Internal Med - H&P Results - Labs CBC & Chem 7: 06/03/16 18:29 06/03/16 18:29 - Diagnostic Studies Chest x-ray Status: image reviewed by me (no infiltrate; unchanged from last CXR (~2 years ago)) - Attending Attestation I discussed the patient IQUGMIUT, PMH, ROS, lab data, and exam findings with Dr. Ulloa. We also viewed and compared her CXR as well. I then saw, interviewed, and examined patient independently as well. Pt is alert and in no distress. Her urine is dark, cloudy, and scant in her Maciel bag. She looks dehydrated. She is in no respiratory distress. Furthermore, other than a few scant rhonchi, her lungs are clear. She denies any SOB or cough. BP and HR are stable presently. She denies any CP. We will hold Vancomycin and continue with monotherapy (Meropenem) for now given the likely urine source of her sepsis. I did ask Dr. Ulloa to obtain a Flu swab given the prominence of Influenza in the community and local ECF's presently. Other than my comments above and noted exam findings, I agree with Dr. Ulloa's assessment and plan.
[2016-06-04] MEDS ORDERED: D5% in Water 1,000 ML IV PRN (00:04)
[2016-06-04] MEDS ORDERED: Dextrose Gel 15 GM PO PRN ×2 (00:04)
[2016-06-04] MEDS ORDERED: *HR* Dextrose 50 % in Water (Syg) 50 ML SYRINGE IVP PRN (00:04)
[2016-06-04] MEDS ORDERED: Albuterol 2.5 MG/3 ML NEBULIZER IH PRN (00:56)
[2016-06-04] MEDS ORDERED: Budesonide/Formoterol 80/4.5 MDI IH SCH (01:00)
[2016-06-04] MEDS: *HR* Heparin 5,000 UNIT/ML VIAL SQ SCH ×4 (01:17→21:25)
[2016-06-04] MEDS: 0.9 % Sodium Chloride 1,000 ML IVC SCH ×3 (01:17→08:51)
[2016-06-04] MEDS: risperiDONE 0.25 MG TABLET PO SCH ×2 (01:24→08:52)
[2016-06-04 02:01] LABS: Calcium 8.3 mg/dL (8.6-10.8); Potassium 4.2 mEq/L (3.5-4.5)
[2016-06-04 03:33] LABS: Bilirubin,Urine Negative (Negative); Blood,Urine Large (Negative); Clarity,Urine Turbid (Clear); Color,Urine Yellow (Yellow); Glucose,Urine (UA) Normal (Normal); Ketones,Urine Negative (Negative); Leukocyte Esterase,Urine Large (Negative); Nitrite,Urine Negative (Negative); Protein,Urine 100 mg/dL (Neg-Trace); Specific Gravity,Urine 1.014 (1.010-1.025); Urobilinogen,Urine Normal (Normal)
[2016-06-04 03:35] LABS: Bacteria,Urine Many per hpf (None-Few); Hyaline Casts,Urine Moderate per lpf (None-Few); RBC,Urine 15-30 per hpf (0-3); Squamous Epithelial Cell,Urine Many per lpf (None-Few); WBC,Urine TNTC per hpf (0-3)
[2016-06-04] MEDS: Ipratropium/Albuterol Neb 3 ML IH SCH ×3 (04:08→16:56)
[2016-06-04 04:34] LABS: Calcium Oxalate Crystals,Urine Present
[2016-06-04 04:35] LABS: Mucus,Urine Many (Few); Yeast,Urine Few per hpf (None Seen)
[2016-06-04] MEDS: Insulin LISPRO 300 UNITS/3 ML VIAL SQ SCH ×5 (06:18→21:25)
[2016-06-04 07:18] LABS: Basophils % 0.1 %; Eosinophils % 0.3 %; Hematocrit 31.6 % (35.3-44.9); Immature Granulocytes % 0.4 % (0-4); Immature Platelets 4.5 % (1.1-6.1); Lymphocytes # 1.3 K/mcL (0.6-4.6); Lymphocytes % 10.9 %; Mean Corpuscular HGB Conc 31.6 g/dL (31.6-35.5); Mean Corpuscular Hemoglobin 27.6 pg (28.0-33.3); Mean Corpuscular Volume 87.3 fL (83.0-100.0); Mean Platelet Volume 10.6 fL (9.4-12.4); Monocytes # 0.9 K/mcL (0.0-1.3); Monocytes % 7.4 %; Neutrophils # 9.6 K/mcL (1.6-8.9); Platelet Count 204 K/mcL (140-400); Red Blood Count 3.62 M/mcL (3.82-4.97); Red Cell Distribution Width 16.9 % (11.5-14.5); Segmented Neutrophils % 80.9 %
[2016-06-04 07:24] LABS: Hemoglobin A1C 5.8 %
[2016-06-04] MEDS: Pantoprazole 40 MG VIAL IVP SCH (08:51)
[2016-06-04] MEDS: Fluticasone Propionate Nasal 50 MCG/SPRAY BOTTLE NS SCH (08:52)
[2016-06-04] MEDS: Tiotropium 18 MCG inhalation IH SCH (09:47)
[2016-06-04] MEDS: Budesonide/Formoterol 80/4.5 MDI IH SCH ×2 (09:47→22:55)
[2016-06-04] MEDS ORDERED: 0.9 % Sodium Chloride 1,000 ML IVC SCH ×2 (11:00)
--- NOTE | 2016-06-04 11:13 | Event Note ---
Date of Encounter: 06/04/16 Time of Encounter: 11:04 81-year-old female with history of chronic respiratory failure with tracheostomy , chronic kidney disease, hypertension, diabetes and COPD, admitted with altered mental status and lethargy from [facility]. Patient is noted to have possible UTI and less likely pneumonia. Patient seen and examined at bedside. Able to answer a few questions; know that she is at [facility], due to kidney problems; Awake, alert, slightly drowsy, arousable to touch; Chest- S1, S2 heard; lungs with coarse transmitted sounds and mild rhonchi B/L Abdomen- soft, obese, nontender, reducible paraumbilical hernia Severe sepsis due to presumed UTI- Chest XRay reviewed, no significant findings of new infiltrates; UA suggestive of UTI; Henderson catheter changed; unclear if this is chronic; based on previous sputum and urine culture, will continue IV Meropenem; f/up blood and urine cultures; serum Troponin normalized, likely demand ischemia due to underlying sepsis; Acute metabolic/septic encephalopathy- improving; treat underlying condition, supportive care; ANGELA on CKD- stage 3: continue IV hydration; f/up renal ultrasound to r/o obstructive uropathy; dose antibiotics per current GFR; Chronic respiratory failure, on tracheostomy- continue trach collar care; O2 requirements at baseline; Continue home meds for remaining comobidities- DM, HTN, COPD, hypothyroidism;
--- NOTE | 2016-06-04 16:48 | Electrocardiograph Report ---
[address] [address] Test Date: 2016-06-03 Pat Name: Eve Moses Department: 102 Room: 2N02 Gender: F Food Service Lead: : 1935 Requested By: Lisa Donato Order Number: [id number] Reading MD: Kayleen Crooks Measurements Intervals [place] Rate: 98 P: NV: 0 QRS: 4 QRSD: 75 T: 31 QT: 323 QTc: 379 Interpretive Statements ATRIAL FIBRILLATION LOW QRS VOLTAGE IN PRECORDIAL LEADS [QRS DEFLECTION < 1.0 mV IN CHEST LEADS] NONSPECIFIC T-WAVE ABNORMALITY ABNORMAL RHYTHM ECG Electronically Signed On 06-04-2016 16:47:02 EDT by Kayleen Crooks
[2016-06-04] MEDS: Meropenem 500 MG in 0.9 % Sodium Chloride Mini Bag 100 ML IVPB SCH (17:23)
[2016-06-04] MEDS ORDERED: Meropenem 1,000 MG in 0.9 % Sodium Chloride Mini Bag 100 ML IVPB ONE (19:55)
[2016-06-04] MEDS: Sennosides/Docusate Sodium TABLET PO SCH (21:25)
[2016-06-05] MEDS: Ipratropium/Albuterol Neb 3 ML IH SCH ×3 (03:13→16:41)
[2016-06-05 06:27] LABS: Basophils % 0.1 %; Eosinophils % 0.5 %; Hematocrit 30.3 % (35.3-44.9); Hemoglobin 9.3 g/dL (11.5-15.4); Immature Granulocytes % 0.2 % (0-4); Lymphocytes # 1.3 K/mcL (0.6-4.6); Lymphocytes % 15.2 %; Mean Corpuscular HGB Conc 30.7 g/dL (31.6-35.5); Mean Corpuscular Hemoglobin 27.1 pg (28.0-33.3); Mean Corpuscular Volume 88.3 fL (83.0-100.0); Mean Platelet Volume 10.6 fL (9.4-12.4); Monocytes # 0.8 K/mcL (0.0-1.3); Monocytes % 9.7 %; Neutrophils # 6.4 K/mcL (1.6-8.9); Platelet Count 180 K/mcL (140-400); Red Blood Count 3.43 M/mcL (3.82-4.97); Red Cell Distribution Width 17.2 % (11.5-14.5); Segmented Neutrophils % 74.3 %
[2016-06-05] MEDS: *HR* Heparin 5,000 UNIT/ML VIAL SQ SCH ×3 (06:30→21:56)
[2016-06-05] MEDS: Meropenem 500 MG in 0.9 % Sodium Chloride Mini Bag 100 ML IVPB SCH ×2 (06:30→16:56)
[2016-06-05 06:37] LABS: Potassium 3.9 mEq/L (3.5-4.5)
[2016-06-05] MEDS: Pantoprazole 40 MG VIAL IVP SCH (07:56)
[2016-06-05] MEDS: Sennosides/Docusate Sodium TABLET PO SCH ×2 (07:56→21:56)
[2016-06-05] MEDS: Insulin LISPRO 300 UNITS/3 ML VIAL SQ SCH ×4 (07:59→21:57)
[2016-06-05] MEDS: Fluticasone Propionate Nasal 50 MCG/SPRAY BOTTLE NS SCH (07:59)
[2016-06-05] MEDS: risperiDONE 0.25 MG TABLET PO SCH (08:00)
--- NOTE | 2016-06-05 08:41 | Internal Med Progress Note ---
Date of Encounter: 06/05/16 Time of Encounter: 08:38 - Assessment and plan (1) Severe sepsis Current Visit: Yes Status: Acute Assessment and plan: Likely related to catheter related UTI. Much improved clinically. No fever spikes, improved leukocytosis and encephalopathy. Continue IV meropenem for now as patient does show good clinical response. Blood cultures remain negative so far. Initial urine culture grows to different gram-negative rods, repeat urine culture, which is more sterile, sent after chronic Henderson catheter exchange, is pending. Supportive care. Continue to monitor vitals closely. (2) COPD (chronic obstructive pulmonary disease) Current Visit: Yes Status: Chronic Assessment and plan: Continue when necessary bronchodilators. Patient has chronic tracheostomy, connected to vent. Continue vent support and tracheostomy care. Qualifiers: COPD type: unspecified COPD Qualified Code(s): J44.9 - Chronic obstructive pulmonary disease, unspecified (3) Diabetes Current Visit: Yes Status: Chronic Assessment and plan: Continue Accu-Chek blood glucose monitoring with sliding scale insulin. Blood sugars noted to be well controlled. Qualifiers: Diabetes mellitus type: type 2 Diabetes mellitus complication status: with kidney complications Diabetes mellitus complication detail: with chronic kidney disease Diabetes mellitus custodial insulin use: without watermelon inspector use Chronic kidney disease stage: stage 3 (moderate) Qualified Code(s): E11.22 - Type 2 diabetes mellitus with diabetic chronic kidney disease; N18.3 - Chronic kidney disease, stage 3 (moderate) (4) Hypothyroid Current Visit: Yes Status: Chronic Qualifiers: Hypothyroidism type: unspecified Qualified Code(s): E03.9 - Hypothyroidism , unspecified (5) UTI (urinary tract infection) Current Visit: Yes Status: Acute Assessment and plan: Complicated UTI due to chronic indwelling Henderson catheter. Follow up urine cultures and adjust antibiotics as needed. Qualifiers: Urinary tract infection type: site unspecified Hematuria presence: without hematuria Qualified Code(s): N39.0 - Urinary tract infection, site not specified (6) Elevated troponin Current Visit: Yes Status: Resolved Assessment and plan: Likely related to underlying sepsis. Improved now. Continue telemetry monitoring. (7) Agecl-uu-cdgmdos kidney injury Current Visit: Yes Status: Resolved Assessment and plan: Serum creatinine improving back to baseline. Acute kidney injury related to dehydration and underlying sepsis, responded to IV hydration. Continue to monitor serum creatinine and avoid nephrotoxic agents. (8) Chronic respiratory failure with hypoxia Current Visit: Yes Status: Chronic Assessment and plan: Unknown reason for chronic vent dependence, on tracheostomy. Currently noted to have some aspiration. Patient is noted to be on mechanical soft diet at the group home. Will consider bedside swallow evaluation and possibly start pureed diet to prevent aspiration. Aspiration precautions. Frequent suctioning. - Subjective Interval history: Noted to be having breakfast but possibly aspirating. Medical staff is able to suction food particles from her trach. Patient does not report chest or abdominal pain, subjective dyspnea or palpitations. Intermittent cough. No vomiting or diarrhea. - Constitutional Vitals: Temp Pulse Resp BP Pulse Ox 98.4 F 72 16 114/69 97 06/05/16 07:35 06/05/16 07:35 06/05/16 07:49 06/05/16 07:35 06/05/16 07:49 General appearance: Present: A&O X 3 (Appears more alert than yesterday), answers questions appropriately - Neck Neck exam general surgery: Present: supple, trachea midline. Absent: lymphadenopathy Additional comments: Tracheostomy tube in place - Respiratory Respiratory exam: Present: rhonchi (Bilateral diffuse rhonchi and transmitted breath sounds). Absent: accessory muscle use, rales, wheezes - Cardiovascular Cardiovascular exam: Present: RRR, +S1, +S2. Absent: diastolic murmur, gallop, rubs, systolic murmur - GI/Abdominal GI/Abdominal exam: Present: normal bowel sounds, soft (Obese), no peritoneal signs. Absent: distended, tenderness - Extremities Exam Extremities exam: Present: full ROM, warm, radial pulses palpable and symetrical. Absent: calf tenderness, cyanotic, pedal edema Internal Medicine: Result - Labs CBC & Chem 7: 06/05/16 05:47 06/05/16 05:47 Labs: Short CBC 06/05/16 Range/Units 05:47 WBC 8.6 (4.3-11.1) K/mcL Hgb 9.3 L (11.5-15.4) g/dL Hct 30.3 L (35.3-44.9) % Plt Count 180 (140-400) K/mcL Neutrophils # 6.4 (1.6-8.9) K/mcL BMP 06/05/16 05:47 Sodium 136 Potassium 3.9 Chloride 105 Carbon Dioxide 23 BUN 40 H D Creatinine 1.64 H Glucose 123 H Calcium 8.0 L Cardiac Enzymes 06/04/16 Range/Units 13:26 Troponin I 0.02 (0-0.03) ng/mL - Impressions Impressions Retroperitoneum Ultrasound 06/04/16 15:00 IMPRESSION: No evidence of hydronephrosis. Right nephrolithiasis. Splenomegaly. Thick-walled bladder. If there is clinical concern for cystitis, suggest correlation with urinalysis. D/ / Jacob Urrutia MD / Jacob Urrutia MD Interpreting Provider: Jacob Urrutia MD Consult Discharge Plan - Plan Referrals: NO,PCP [Primary Care Provider] - ([facility] IS FROM [facility] NO PCP APPOINTMENT )
[2016-06-05] MEDS: Tiotropium 18 MCG inhalation IH SCH (10:19)
[2016-06-05] MEDS: Budesonide/Formoterol 80/4.5 MDI IH SCH ×2 (10:38→20:38)
[2016-06-06] MEDS: Ipratropium/Albuterol Neb 3 ML IH SCH ×3 (03:25→17:43)
[2016-06-06] MEDS: Meropenem 500 MG in 0.9 % Sodium Chloride Mini Bag 100 ML IVPB SCH ×2 (05:41→17:10)
[2016-06-06] MEDS: *HR* Heparin 5,000 UNIT/ML VIAL SQ SCH ×3 (05:41→20:54)
[2016-06-06] MEDS: Insulin LISPRO 300 UNITS/3 ML VIAL SQ SCH ×4 (07:53→20:55)
[2016-06-06] MEDS: Sennosides/Docusate Sodium TABLET PO SCH ×2 (08:03→20:54)
[2016-06-06] MEDS: Fluticasone Propionate Nasal 50 MCG/SPRAY BOTTLE NS SCH (08:03)
[2016-06-06] MEDS: risperiDONE 0.25 MG TABLET PO SCH (08:04)
[2016-06-06] MEDS: Pantoprazole 40 MG VIAL IVP SCH (08:04)
--- NOTE | 2016-06-06 08:10 | Internal Med Progress Note ---
Date of Encounter: 06/06/16 Time of Encounter: 08:00 - Assessment and plan (1) Severe sepsis Current Visit: Yes Status: Acute Assessment and plan: Likely related to catheter related UTI. Much improved clinically. No fever spikes, improved leukocytosis and encephalopathy. Continue IV meropenem for now as patient does show good clinical response. Blood cultures remain negative so far. Initial urine culture grows Escherichia coli and yet to be identified gram-negative rods, repeat urine culture, which is more sterile, sent after chronic Henderson catheter exchange, grows Escherichia coli. We will follow up final cultures. Supportive care. Continue to monitor vitals closely. (2) COPD (chronic obstructive pulmonary disease) Current Visit: Yes Status: Chronic Assessment and plan: Continue when necessary bronchodilators. Patient has chronic tracheostomy, connected to vent. Continue vent support and tracheostomy care. Qualifiers: COPD type: unspecified COPD Qualified Code(s): J44.9 - Chronic obstructive pulmonary disease, unspecified (3) Diabetes Current Visit: Yes Status: Chronic Assessment and plan: Continue Accu-Chek blood glucose monitoring with sliding scale insulin. Blood sugars noted to be well controlled. Qualifiers: Diabetes mellitus type: type 2 Diabetes mellitus complication status: with kidney complications Diabetes mellitus complication detail: with chronic kidney disease Diabetes mellitus exterminator termite insulin use: without skilled nursing use Chronic kidney disease stage: stage 3 (moderate) Qualified Code(s): E11.22 - Type 2 diabetes mellitus with diabetic chronic kidney disease; N18.3 - Chronic kidney disease, stage 3 (moderate) (4) Hypothyroid Current Visit: Yes Status: Chronic Qualifiers: Hypothyroidism type: unspecified Qualified Code(s): E03.9 - Hypothyroidism , unspecified (5) UTI (urinary tract infection) Current Visit: Yes Status: Acute Assessment and plan: Complicated UTI due to chronic indwelling Henderson catheter. Follow up urine cultures and adjust antibiotics as needed. Qualifiers: Urinary tract infection type: site unspecified Hematuria presence: without hematuria Qualified Code(s): N39.0 - Urinary tract infection, site not specified (6) Elevated troponin Current Visit: Yes Status: Resolved (7) Cywtb-xw-dznhyfu kidney injury Current Visit: Yes Status: Resolved Assessment and plan: Serum creatinine improving back to baseline. Acute kidney injury related to dehydration and underlying sepsis, responded to IV hydration. Continue to monitor serum creatinine and avoid nephrotoxic agents. Renal ultrasound shows right-sided nephrolithiasis with no hydronephrosis or obstructive uropathy. (8) Chronic respiratory failure with hypoxia Current Visit: Yes Status: Chronic Assessment and plan: Unknown reason for chronic vent dependence, on tracheostomy. Aspiration precautions. Frequent suctioning. Bedside swallow evaluation completed, patient is able to tolerate mechanical soft diet with thin liquids. - Subjective Interval history: Slightly irritable today. No cough, chest pain, abdominal pain or any other complaints. Refuses new IV access, as her current diabetes are noted to be leaking. - Constitutional Vitals: Temp Pulse Resp BP Pulse Ox 98.7 F 78 16 116/59 96 06/06/16 07:37 06/06/16 07:37 06/06/16 07:37 06/06/16 07:37 06/06/16 07:37 General appearance: Present: A&O X 3, answers questions appropriately - Respiratory Respiratory exam: Present: rhonchi (Course in transmitted breath sounds bilaterally with intermittent rhonchi). Absent: accessory muscle use, rales, wheezes - Cardiovascular Cardiovascular exam: Present: RRR, +S1, +S2. Absent: diastolic murmur, gallop, rubs, systolic murmur - GI/Abdominal GI/Abdominal exam: Present: normal bowel sounds, soft (Obese), no peritoneal signs. Absent: distended, tenderness - Extremities Exam Extremities exam: Present: full ROM, warm, radial pulses palpable and symetrical. Absent: calf tenderness, cyanotic, pedal edema Internal Medicine: Result - Labs CBC & Chem 7: 06/05/16 05:47 06/05/16 05:47 Consult Discharge Plan - Plan Referrals: NO,PCP [Primary Care Provider] - ([facility] NO PCP APPOINTMENT )
[2016-06-06 08:11] LABS: Basophils % 0.1 %; Eosinophils % 0.3 %; Hematocrit 32.8 % (35.3-44.9); Hemoglobin 9.9 g/dL (11.5-15.4); Immature Granulocytes % 0.8 % (0-4); Lymphocytes # 1.5 K/mcL (0.6-4.6); Lymphocytes % 14.9 %; Mean Corpuscular HGB Conc 30.2 g/dL (31.6-35.5); Mean Corpuscular Hemoglobin 26.9 pg (28.0-33.3); Mean Corpuscular Volume 89.1 fL (83.0-100.0); Mean Platelet Volume 11.1 fL (9.4-12.4); Monocytes % 9.3 %; Neutrophils # 7.6 K/mcL (1.6-8.9); Platelet Count 192 K/mcL (140-400); Red Blood Count 3.68 M/mcL (3.82-4.97); Red Cell Distribution Width 16.9 % (11.5-14.5); Segmented Neutrophils % 74.6 %
[2016-06-06 10:05] LABS: Calcium 8.4 mg/dL (8.6-10.8); Potassium 3.9 mEq/L (3.5-4.5)
[2016-06-06] MEDS: Budesonide/Formoterol 80/4.5 MDI IH SCH ×2 (10:33→22:52)
[2016-06-06] MEDS: Tiotropium 18 MCG inhalation IH SCH (10:33)
[2016-06-07] MEDS: Ipratropium/Albuterol Neb 3 ML IH SCH ×3 (03:46→16:03)
[2016-06-07] MEDS: *HR* Heparin 5,000 UNIT/ML VIAL SQ SCH ×3 (06:49→20:26)
[2016-06-07] MEDS: Meropenem 500 MG in 0.9 % Sodium Chloride Mini Bag 100 ML IVPB SCH ×2 (06:49→18:01)
[2016-06-07] MEDS: Pantoprazole 40 MG VIAL IVP SCH (07:57)
[2016-06-07] MEDS: risperiDONE 0.25 MG TABLET PO SCH (07:57)
[2016-06-07] MEDS: Fluticasone Propionate Nasal 50 MCG/SPRAY BOTTLE NS SCH (07:58)
[2016-06-07] MEDS: Sennosides/Docusate Sodium TABLET PO SCH ×2 (07:58→20:29)
[2016-06-07] MEDS: Insulin LISPRO 300 UNITS/3 ML VIAL SQ SCH ×4 (07:59→20:29)
--- NOTE | 2016-06-07 08:52 | Discharge Summary ---
Date of Encounter: 06/07/16 Time of Encounter: 08:45 - Discharge Diagnosis (1) UTI (urinary tract infection) Priority: Primary Status: Acute Qualifiers: Urinary tract infection type: site unspecified Hematuria presence: without hematuria Qualified Code(s): N39.0 - Urinary tract infection, site not specified (2) Severe sepsis Priority: Primary Status: Acute (3) COPD (chronic obstructive pulmonary disease) Priority: Secondary Status: Chronic Qualifiers: COPD type: unspecified COPD Qualified Code(s): J44.9 - Chronic obstructive pulmonary disease, unspecified (4) Diabetes Priority: Secondary Status: Chronic Qualifiers: Diabetes mellitus type: type 2 Diabetes mellitus complication status: with kidney complications Diabetes mellitus complication detail: with chronic kidney disease Diabetes mellitus terminal manager insulin use: without terminal manager use Chronic kidney disease stage: stage 3 (moderate) Qualified Code(s): E11.22 - Type 2 diabetes mellitus with diabetic chronic kidney disease; N18.3 - Chronic kidney disease, stage 3 (moderate) (5) Hypothyroid Priority: Secondary Status: Chronic Qualifiers: Hypothyroidism type: unspecified Qualified Code(s): E03.9 - Hypothyroidism , unspecified (6) Elevated troponin Priority: Primary Status: Resolved (7) Cbyev-oj-tpeylhd kidney injury Priority: Primary Status: Resolved (8) Chronic respiratory failure with hypoxia Priority: Secondary Status: Chronic - Discharge Medications Prescriptions: Cephalexin [Keflex] 500 mg PO BID #22 capsule Home Medications: Alprazolam [Xanax 0.25 MG Tablet] 0.25 mg PO Q4H PRN 11/03/14 [History] Alprazolam [Xanax 0.5 MG Tablet] 0.5 mg PO HS 11/03/14 [History] Fluticasone Propionate Nasal [Flonase] 1 spray NS DAILY 11/03/14 [History] Furosemide [Lasix] 40 mg PO DAILY 11/03/14 [History] HYDROcodone/Acet 5/325 mg [[place] 5-325 mg] 1 tab PO Q4HR PRN 11/03/14 [History] Insulin ASPART [NovoLOG] 2 - 10 unit SQ ACHS 11/03/14 [History] Insulin Glargine,Hum.rec.anlog [Lantus Solostar] 50 unit SQ HS 11/03/14 [History ] Insulin NPH Hum/Reg Insulin Hm [Humulin 70-30 Vial] 45 unit SQ QAM 11/03/14 [ History] Latanoprost [Xalatan] 1 drop BOTH EYES HS 11/03/14 [History] Levothyroxine [Synthroid] 25 mcg PO 0630 11/03/14 [History] Magnesium Oxide [Mag-Ox] 400 mg PO BID 11/03/14 [History] Montelukast [Singulair] 10 mg PO HS 11/03/14 [History] Multivit-Min/FA/Ca Carb/Vit K [Women's 50+ Daily Tablet] 1 each PO DAILY [History] RisperiDONE [RisperDAL] 0.25 mg PO DAILY 11/03/14 [History] Sertraline [Zoloft] 150 mg PO DAILY 11/03/14 [History] Tiotropium [Spiriva] 18 mcg IH DAILY 11/03/14 [History] Tolterodine Tartrate [Detrol] 2 mg PO BID #0 11/03/14 [History] Zolpidem [Ambien] 10 mg PO HS PRN 11/03/14 [History] Ascorbic Acid [Vitamin C] 500 mg PO BID 11/17/14 [History] Cholecalciferol (Vitamin D3) [Vitamin D3] 1,000 unit PO DAILY 11/17/14 [History] Ipratropium/Albuterol Neb [Duoneb] 3 ml IH TID 11/17/14 [History] Omeprazole [PriLOSEC] 20 mg PO DAILY PRN 11/17/14 [History] Potassium Chloride 10 meq PO DAILY 11/17/14 [History] Benzocaine/Menthol Okbi [Cepacol Sore Throat Lozenge] 1 lozenge PO Q4H PRN [History] GuaiFENesin Liq [Robitussin Liq] 300 mg PO Q6HR PRN 11/28/14 [History] Loratadine [Claritin] 10 mg PO DAILY PRN 11/28/14 [History] Acetaminophen [Tylenol] 650 mg PO Q6H PRN 02/11/15 [History] Acetylcysteine [G-Usfebc-w-Cysteine] 600 mg PO TID 02/11/15 [History] Alprazolam [Xanax 0.25 MG Tablet] 0.25 mg PO TID 02/11/15 [History] DiphenhydraMINE [Benadryl] 25 mg PO Q6H PRN 02/11/15 [History] L. Rhamnosus GG/Inulin [Culturelle Capsule] 1 cap PO BID 02/11/15 [History] Simethicone [Gas-X] 80 mg PO BID PRN 02/11/15 [History] Propylene Glycol/Peg 400 [Systane Gel Eye Drops] 1 drop BOTH EYES BID PRN [History] Propylene Glycol/Peg 400 [Systane Gel Eye Drops] 1 drop BOTH EYES Q4H PRN [History] Ferrous Sulfate 325 mg PO BIDWM #60 tablet 04/12/16 [Rx] Albuterol Neb [Proventil Neb] 2.5 mg IH Q2H PRN 06/03/16 [History] Carvedilol 12.5 mg PO BID 06/03/16 [History] Docusate [Colace] 100 mg PO BID 06/03/16 [History] Fluticasone/Salmeterol [Advair 250-50 Diskus] 1 each IH BID 06/03/16 [History] Glimepiride [Amaryl] 1 mg PO QAM 06/03/16 [History] Cephalexin [Keflex] 500 mg PO BID #22 capsule 06/07/16 [Rx] Allergies/Adverse Reactions: Allergies codeine Allergy (Verified 11/17/15 10:43) unknown Penicillins Allergy (Verified 11/17/15 10:43) unknown Procedures/tests Complete & Pending: Procedures Performed prior 72 hours Category Date Time Status Retroperitoneal Ultrasound - Complete [US Exams 06/04/16 15:00 Completed retroperitoneal comp] [US] Stat Date of admission: 06/03/16 23:32 Primary care physician: PCP NO Discharging clinician: Melvina Mc Anticipated date of discharge: 06/07/16 - Patient Status Disposition: Transfer SNF Condition: Good Functional capacity at discharge: uses cane/walker Overall status at discharge: patient is progressing back to baseline - Discharge Instructions Follow Up With: NO,PCP [Primary Care Provider] - (PATIENT IS FROM [facility] NO PCP APPOINTMENT ) Additional Instructions: Follow-up with primary care provider in one to 2 weeks - Diet and Activity Activity: as per physical therapy, other (Continue mechanical ventilation via tracheostomy) Diet: diabetic diet, low fat, low cholesterol, low salt diet, other (Mechanical soft diet with thin liquids) Hospital course: Ms. Moses is a 81 year old female with chronic ventilator dependence, on tracheostomy, [facility] with altered mental status and lethargy. She is noted to be on chronic Henderson catheter and initial urinalysis was suggestive of UTI. She was started on IV antibiotics and IV hydration. She also had acute on chronic renal failure due to infection, which gradually improved back to baseline. Leukocytosis was improved and patient felt much better. Blood cultures remained negative. Initial urine culture grew E.coli and MDRO Klebsiella. Repeat urine culture was sent after Henderson catheter was changed , which grows E.coli. As patient responded well to IV Meropenem to which Klebsiella is resistant, and since it did not grow out in more sterile urine sample, patient may be treated for E.coli to complete 14-day course. SHe is medically stable for discharge on PO Keflex. - Time Spent with Patient Total time spent providing and/or coordinating discharge services: Greater than 30 minutes (45 min) - Constitutional Vitals: Temp Pulse Resp BP Pulse Ox 97.4 F L 96 22 129/72 98 06/07/16 07:12 06/07/16 07:12 06/07/16 07:12 06/07/16 07:12 06/07/16 05:15 General appearance: Present: A&O X 3, answers questions appropriately - Respiratory Respiratory exam: Present: CTAB (Bilateral coarse transmitted breath sounds. No wheezing or rhonchi.). Absent: accessory muscle use, rales, rhonchi, wheezes - Cardiovascular Cardiovascular exam: Present: RRR, +S1, +S2. Absent: diastolic murmur, gallop, rubs, systolic murmur
--- NOTE | 2016-06-07 08:55 | Physician Discharge Referral ---
ExtendedCare Referral Info Transfer To: [facility] Provider in Charge: Melvina Mc Provider in Charge after Transfer: PCP Institutional Level of Care: Skilled - Diagnosis (1) UTI (urinary tract infection) Priority: Primary Status: Acute (2) Severe sepsis Priority: Primary Status: Acute (3) COPD (chronic obstructive pulmonary disease) Priority: Secondary Status: Chronic (4) Diabetes Priority: Secondary Status: Chronic (5) Hypothyroid Priority: Secondary Status: Chronic (6) Elevated troponin Priority: Primary Status: Resolved (7) Xyvee-qv-bcmsxwk kidney injury Priority: Primary Status: Resolved (8) Chronic respiratory failure with hypoxia Priority: Secondary Status: Chronic Expected Duration of Placement: [facility] Prognosis: Fair Aware of Diagnosis: Patient Aware of Prognosis: Patient - Transfer Medications Prescriptions: Cephalexin [Keflex] 500 mg PO BID #22 capsule Home Medications: Alprazolam [Xanax 0.25 MG Tablet] 0.25 mg PO Q4H PRN 11/03/14 [History] Alprazolam [Xanax 0.5 MG Tablet] 0.5 mg PO HS 11/03/14 [History] Fluticasone Propionate Nasal [Flonase] 1 spray NS DAILY 11/03/14 [History] Furosemide [Lasix] 40 mg PO DAILY 11/03/14 [History] HYDROcodone/Acet 5/325 mg [Britt 5-325 mg] 1 tab PO Q4HR PRN 11/03/14 [History] Insulin ASPART [NovoLOG] 2 - 10 unit SQ ACHS 11/03/14 [History] Insulin Glargine,Hum.rec.anlog [Lantus Solostar] 50 unit SQ HS 11/03/14 [History ] Insulin NPH Hum/Reg Insulin Hm [Humulin 70-30 Vial] 45 unit SQ QAM 11/03/14 [ History] Latanoprost [Xalatan] 1 drop BOTH EYES HS 11/03/14 [History] Levothyroxine [Synthroid] 25 mcg PO 0630 11/03/14 [History] Magnesium Oxide [Mag-Ox] 400 mg PO BID 11/03/14 [History] Montelukast [Singulair] 10 mg PO HS 11/03/14 [History] Multivit-Min/FA/Ca Carb/Vit K [Women's 50+ Daily Tablet] 1 each PO DAILY [History] RisperiDONE [RisperDAL] 0.25 mg PO DAILY 11/03/14 [History] Sertraline [Zoloft] 150 mg PO DAILY 11/03/14 [History] Tiotropium [Spiriva] 18 mcg IH DAILY 11/03/14 [History] Tolterodine Tartrate [Detrol] 2 mg PO BID #0 11/03/14 [History] Zolpidem [Ambien] 10 mg PO HS PRN 11/03/14 [History] Ascorbic Acid [Vitamin C] 500 mg PO BID 11/17/14 [History] Cholecalciferol (Vitamin D3) [Vitamin D3] 1,000 unit PO DAILY 11/17/14 [History] Ipratropium/Albuterol Neb [Duoneb] 3 ml IH TID 11/17/14 [History] Omeprazole [PriLOSEC] 20 mg PO DAILY PRN 11/17/14 [History] Potassium Chloride 10 meq PO DAILY 11/17/14 [History] Benzocaine/Menthol Kobi [Cepacol Sore Throat Lozenge] 1 lozenge PO Q4H PRN [History] GuaiFENesin Liq [Robitussin Liq] 300 mg PO Q6HR PRN 11/28/14 [History] Loratadine [Claritin] 10 mg PO DAILY PRN 11/28/14 [History] Acetaminophen [Tylenol] 650 mg PO Q6H PRN 02/11/15 [History] Acetylcysteine [A-Wxckla-z-Cysteine] 600 mg PO TID 02/11/15 [History] Alprazolam [Xanax 0.25 MG Tablet] 0.25 mg PO TID 02/11/15 [History] DiphenhydraMINE [Benadryl] 25 mg PO Q6H PRN 02/11/15 [History] L. Rhamnosus GG/Inulin [Culturelle Capsule] 1 cap PO BID 02/11/15 [History] Simethicone [Gas-X] 80 mg PO BID PRN 02/11/15 [History] Propylene Glycol/Peg 400 [Systane Gel Eye Drops] 1 drop BOTH EYES BID PRN [History] Propylene Glycol/Peg 400 [Systane Gel Eye Drops] 1 drop BOTH EYES Q4H PRN [History] Ferrous Sulfate 325 mg PO BIDWM #60 tablet 04/12/16 [Rx] Albuterol Neb [Proventil Neb] 2.5 mg IH Q2H PRN 06/03/16 [History] Carvedilol 12.5 mg PO BID 06/03/16 [History] Docusate [Colace] 100 mg PO BID 06/03/16 [History] Fluticasone/Salmeterol [Advair 250-50 Diskus] 1 each IH BID 06/03/16 [History] Glimepiride [Amaryl] 1 mg PO QAM 06/03/16 [History] Cephalexin [Keflex] 500 mg PO BID #22 capsule 06/07/16 [Rx] Allergies/Adverse Reactions: Allergies codeine Allergy (Verified 11/17/15 10:43) unknown Penicillins Allergy (Verified 11/17/15 10:43) unknown - Respiratory Orders Other (tracheostomy and vent-dependence) Smoking Cessation: Smoking cessation has been advised. For more information, call the [place] Tobacco Quit Line at 5-354-YEZV-NOW. - Ancillary Orders May use pressure relief devices daily prn - Advance Directives Code Status: Full Code - Mobility Orders Ambulate - Rehabiliation Orders Rehab Potential: Fair Rehab Orders: ROM Exercises, Evaluation for Physical Therapy, Evaluation for Occupational Therapy - Diet Orders Mechanical Soft, No Concentrated Sweets (diabetic), Cardiac CERTIFICATION: I certify that the transfer of the above named patient to an Extended Care Facility is necessary for the continuing treatment of the diagnosis listed. The above information is true and accurate reflection of patient's current condition. Confidential - Redisclosure prohibited without a patient's written consent.
[2016-06-07] MEDS: Budesonide/Formoterol 80/4.5 MDI IH SCH ×2 (10:01→20:41)
[2016-06-07] MEDS: Tiotropium 18 MCG inhalation IH SCH (10:02)
[2016-06-07] MEDS ORDERED: *HR* LORazepam 2 MG/ML VIAL ONE (11:21)
[2016-06-07] MEDS ORDERED: Lidocaine -MPF 1% 5 ML AMPUL INFILT ONE (11:25)
[2016-06-07] MEDS ORDERED: *HR* LORazepam 2 MG/ML VIAL IM STA (11:27)
--- NOTE | 2016-06-07 12:58 | Pulmonology Consult Note ---
Date of Encounter: 06/07/16 Time of Encounter: 12:15 Assessment and Plan (1) Acute and chronic respiratory failure with hypoxia Current Visit: No Status: Acute Patient is feeling better now and changed mode of the ventilator to VC+ and lower FIO2 to 50% and need to continue to bronchodilators due to autoPEEP. Patient can follow up as outpatient and continue with her vent setting in the ECF. Discussed with primary team and vent is delivering good tidal volume and can follow up as outpatient when she is discharged to ECF. (2) COPD (chronic obstructive pulmonary disease) Current Visit: Yes Status: Chronic Continue bronchodilators. Qualifiers: COPD type: unspecified COPD Qualified Code(s): J44.9 - Chronic obstructive pulmonary disease, unspecified History of Present Illness Consult date: 06/07/16 Requesting physician: Melvina Mc Reason for consult: other (Chronic respiratory failure) Chief complaint: Altered Mental status History of present illness: This is a pleasant 81 year female who has chronic respiratory failure and she is known to me from outpatient clinic. Patient has chronic trach and vent dependent and difficult to get any reliable history from the patient. I was called by the primary team because she was having difficulty with the ventilator and she was sent by ECF for reported concerns of altered mental status and decreased responsiveness. When the time I arrived patient was feeling better and there was a tidal volume on a ventilator and the nurse stated she was doing better after she received Ativan. Patient is a sleepy, however she is responding. Past Med Surg Social Fam HX - Past Medical History Medical history: diabetes, glaucoma, renal disease Psychiatric history: no psych history - Past Surgical History Surgical History: other - Social History Smoking Status: Unknown if ever smoked Smokeless Tobacco Status: No Alcohol use: none Drug use: none - Family History Mother History Unknown: Yes Father History Unknown: Yes Medications and Allergies Alprazolam [Xanax 0.25 MG Tablet] 0.25 mg PO Q4H PRN 11/03/14 [History] Alprazolam [Xanax 0.5 MG Tablet] 0.5 mg PO HS 11/03/14 [History] Fluticasone Propionate Nasal [Flonase] 1 spray NS DAILY 11/03/14 [History] Furosemide [Lasix] 40 mg PO DAILY 11/03/14 [History] HYDROcodone/Acet 5/325 mg [[employer] 5-325 mg] 1 tab PO Q4HR PRN 11/03/14 [History] Insulin ASPART [NovoLOG] 2 - 10 unit SQ ACHS 11/03/14 [History] Insulin Glargine,Hum.rec.anlog [Lantus Solostar] 50 unit SQ HS 11/03/14 [History ] Insulin NPH Hum/Reg Insulin Hm [Humulin 70-30 Vial] 45 unit SQ QAM 11/03/14 [ History] Latanoprost [Xalatan] 1 drop BOTH EYES HS 11/03/14 [History] Levothyroxine [Synthroid] 25 mcg PO 0630 11/03/14 [History] Magnesium Oxide [Mag-Ox] 400 mg PO BID 11/03/14 [History] Montelukast [Singulair] 10 mg PO HS 11/03/14 [History] Multivit-Min/FA/Ca Carb/Vit K [Women's 50+ Daily Tablet] 1 each PO DAILY [History] RisperiDONE [RisperDAL] 0.25 mg PO DAILY 11/03/14 [History] Sertraline [Zoloft] 150 mg PO DAILY 11/03/14 [History] Tiotropium [Spiriva] 18 mcg IH DAILY 11/03/14 [History] Tolterodine Tartrate [Detrol] 2 mg PO BID #0 11/03/14 [History] Zolpidem [Ambien] 10 mg PO HS PRN 11/03/14 [History] Ascorbic Acid [Vitamin C] 500 mg PO BID 11/17/14 [History] Cholecalciferol (Vitamin D3) [Vitamin D3] 1,000 unit PO DAILY 11/17/14 [History] Ipratropium/Albuterol Neb [Duoneb] 3 ml IH TID 11/17/14 [History] Omeprazole [PriLOSEC] 20 mg PO DAILY PRN 11/17/14 [History] Potassium Chloride 10 meq PO DAILY 11/17/14 [History] Benzocaine/Menthol Kobi [Cepacol Sore Throat Lozenge] 1 lozenge PO Q4H PRN [History] GuaiFENesin Liq [Robitussin Liq] 300 mg PO Q6HR PRN 11/28/14 [History] Loratadine [Claritin] 10 mg PO DAILY PRN 11/28/14 [History] Acetaminophen [Tylenol] 650 mg PO Q6H PRN 02/11/15 [History] Acetylcysteine [Y-Zzeidt-s-Cysteine] 600 mg PO TID 02/11/15 [History] Alprazolam [Xanax 0.25 MG Tablet] 0.25 mg PO TID 02/11/15 [History] DiphenhydraMINE [Benadryl] 25 mg PO Q6H PRN 02/11/15 [History] L. Rhamnosus GG/Inulin [Culturelle Capsule] 1 cap PO BID 02/11/15 [History] Simethicone [Gas-X] 80 mg PO BID PRN 02/11/15 [History] Propylene Glycol/Peg 400 [Systane Gel Eye Drops] 1 drop BOTH EYES BID PRN [History] Propylene Glycol/Peg 400 [Systane Gel Eye Drops] 1 drop BOTH EYES Q4H PRN [History] Ferrous Sulfate 325 mg PO BIDWM #60 tablet 04/12/16 [Rx] Albuterol Neb [Proventil Neb] 2.5 mg IH Q2H PRN 06/03/16 [History] Carvedilol 12.5 mg PO BID 06/03/16 [History] Docusate [Colace] 100 mg PO BID 06/03/16 [History] Fluticasone/Salmeterol [Advair 250-50 Diskus] 1 each IH BID 06/03/16 [History] Glimepiride [Amaryl] 1 mg PO QAM 06/03/16 [History] Cephalexin [Keflex] 500 mg PO BID #22 capsule 06/07/16 [Rx] Allergies codeine Allergy (Verified 11/17/15 10:43) unknown Penicillins Allergy (Verified 11/17/15 10:43) unknown All Systems: A 10-system review of systems was performed and is negative for pertinent findings except as documented above in the HPI. Review of Systems: Not able to obtain from patient after she has received Ativan Physical Examination Vital Signs: Vital Signs, Last 4 Hours Temp Pulse Resp BP Pulse Ox 06/07/16 12:07 98.7 F 127 14 137/88 98 General appearance: no acute distress, lethargic Eyes: nonicteric ENT: oropharynx moist Neck: other (trach in place) Effort: mildly labored Auscultation: bilateral: diminished breath sounds Percussion: bilateral: not dull Cardiovascular: regular rate and rhythm Gastrointestinal: normoactive bowel sounds, non-distended unable to assess due to mental status (She has received Ativan) Ventilator Settings Ventilator Settings: Ventilator Settings, Last 8 Hours Ventilator Mode A/C Ventilator Mode A/C Ventilator Tidal Volume 500 Setting Ventilator Tidal Volume 500 Setting Ventilator Respiratory Rate 14 Setting Ventilator Respiratory Rate 14 Setting Actual Respiratory Rate 20 Actual Respiratory Rate 14 Positive End Expiratory 5 Pressure Positive End Expiratory 5 Pressure Peak Inspiratory Airway 29 Pressure Peak Inspiratory Airway 29 Pressure Results - Laboratory Findings CBC and BMP: 06/06/16 06:34 06/06/16 09:23 Abnormal lab findings: Abnormal lab results RBC 3.68 M/mcL (3.82-4.97) L 06/06/16 06:34 Hgb 9.9 g/dL (11.5-15.4) L 06/06/16 06:34 Hct 32.8 % (35.3-44.9) L 06/06/16 06:34 MCH 26.9 pg (28.0-33.3) L 06/06/16 06:34 MCHC 30.2 g/dL (31.6-35.5) L 06/06/16 06:34 RDW 16.9 % (11.5-14.5) H 06/06/16 06:34 BUN 27 mg/dL (7-20) H D 06/06/16 09:23 Creatinine 1.51 mg/dL (0.57-1.11) H 06/06/16 09:23 Est GFR ( Amer) 40 (> 60) L 06/06/16 09:23 Est GFR (Non-Af Amer) 33 (> 60) L 06/06/16 09:23 Glucose 157 mg/dL (70-99) H 06/06/16 09:23 POC Glucose 121 (58-89) H 06/06/16 20:22 Hemoglobin A1c 5.8 % (-5.6) H 06/04/16 06:48 Calcium 8.4 mg/dL (8.6-10.8) L 06/06/16 09:23 Urine Clarity Turbid (Clear) A 06/04/16 03:20 Urine Protein 100 mg/dL (Neg-Trace) H 06/04/16 03:20 Urine Blood Large (Negative) H 06/04/16 03:20 Ur Leukocyte Esterase Large (Negative) H 06/04/16 03:20 Urine Microscopic RBC 15-30 per hpf (0-3) H 06/04/16 03:20 Urine Microscopic WBC TNTC per hpf (0-3) H 06/04/16 03:20 Ur Squamous Epith Cells Many per lpf (None-Few) H 06/04/16 03:20 Urine Bacteria Many per hpf (None-Few) H 06/04/16 03:20 Hyaline Casts Moderate per lpf (None-Few) H 06/04/16 03:20 Urine Mucus Many (Few) H 06/04/16 03:20 Urine Yeast Few per hpf (None Seen) H 06/04/16 03:20 Ur Culture Indicated? YES (NO) A 06/04/16 03:20 - Microbiology Findings Microbiology Findings: Microbiology, Last 48 Hours 06/04/16 03:20 Urine Culture - Final Urine,Clean Catch Escherichia coli - Clinical Findings Intake & Output: Intake & Output 06/06/16 06/07/16 06/07/16 23:59 07:59 15:59 Intake Total 200 / 200 0 / 0 Output Total 400 / 400 375 / 375 Balance -200 / -200 -375 / -375 0 / 0 Consult Discharge Plan - Plan Additional Instructions: Follow-up with primary care provider in one to 2 weeks Referrals: NO,PCP [Primary Care Provider] - (PATIENT IS FROM [facility] NO PCP APPOINTMENT ) Prescriptions: Cephalexin [Keflex] 500 mg PO BID #22 capsule
--- NOTE | 2016-06-07 17:12 | Event Note ---
Date of Encounter: 06/07/16 Time of Encounter: 11:30 Patient was scheduled for discharge back to SNF today, but had a hypoxic event when the squad were transferring her to [facility], after a huge BM and multiple repositioning attempts by medical staff. Patient was noted to be hypoxic with cyanotic face and lips, with good peripheral pulses. She was given Ambu bag ventilation, and later connected back to vent support, with gradual improvement in O2 saturation. She was tachycardic in 130s, which improved with IM Ativan as she had no IV access. Repeat EKG showed sinus tachycardia with few PVCs; Pulmonology was consulted and her vent settings were changed, recommended bronchodilators and ICS; Patient is currently hemodynamically stable, received an extended IV line; VSS; however states that she does not feel good but feels exhausted and weak; Discharge is being held today for this reason;
[2016-06-08] MEDS: Ipratropium/Albuterol Neb 3 ML IH SCH ×3 (04:17→15:50)
[2016-06-08 04:18] LABS: Basophils % 0.2 %; Eosinophils # 0.2 K/mcL (0.0-0.6); Eosinophils % 1.3 %; Hematocrit 33.9 % (35.3-44.9); Hemoglobin 10.6 g/dL (11.5-15.4); Lymphocytes # 2.3 K/mcL (0.6-4.6); Lymphocytes % 15.1 %; Mean Corpuscular HGB Conc 31.3 g/dL (31.6-35.5); Mean Corpuscular Hemoglobin 27.5 pg (28.0-33.3); Mean Corpuscular Volume 88.1 fL (83.0-100.0); Monocytes # 1.1 K/mcL (0.0-1.3); Neutrophils # 11.5 K/mcL (1.6-8.9); Platelet Count 242 K/mcL (140-400); Red Blood Count 3.85 M/mcL (3.82-4.97); Red Cell Distribution Width 16.3 % (11.5-14.5); Segmented Neutrophils % 75.4 %
[2016-06-08 04:29] LABS: Calcium 8.7 mg/dL (8.6-10.8); Potassium 3.8 mEq/L (3.5-4.5)
[2016-06-08] MEDS: *HR* Heparin 5,000 UNIT/ML VIAL SQ SCH ×2 (06:11→14:34)
[2016-06-08] MEDS: Meropenem 500 MG in 0.9 % Sodium Chloride Mini Bag 100 ML IVPB SCH (06:12)
[2016-06-08] MEDS: Budesonide/Formoterol 80/4.5 MDI IH SCH (08:14)
[2016-06-08] MEDS: Insulin LISPRO 300 UNITS/3 ML VIAL SQ SCH ×2 (08:29→11:44)
[2016-06-08] MEDS: Pantoprazole 40 MG VIAL IVP SCH (08:33)
[2016-06-08] MEDS: risperiDONE 0.25 MG TABLET PO SCH (08:33)
[2016-06-08] MEDS: Sennosides/Docusate Sodium TABLET PO SCH (08:33)
[2016-06-08] MEDS: Fluticasone Propionate Nasal 50 MCG/SPRAY BOTTLE NS SCH (08:34)
[2016-06-08] MEDS: Tiotropium 18 MCG inhalation IH SCH (11:00)
[2016-06-08 11:06] VITALS: BP 144/81
[2016-06-08] MEDS ORDERED: ALPRAZolam 0.25 MG TABLET PO ONE (13:56)
--- NOTE | 2016-06-08 15:44 | Internal Med Progress Note ---
Date of Encounter: 06/08/16 Time of Encounter: 15:42 - Assessment and plan (1) Acute and chronic respiratory failure with hypoxia Current Visit: No Status: Acute (2) Diabetes Current Visit: Yes Status: Chronic Qualifiers: Diabetes mellitus type: type 2 Diabetes mellitus complication status: with kidney complications Diabetes mellitus complication detail: with chronic kidney disease Diabetes mellitus long term care administrator insulin use: without long term care administrator use Chronic kidney disease stage: stage 3 (moderate) Qualified Code(s): E11.22 - Type 2 diabetes mellitus with diabetic chronic kidney disease; N18.3 - Chronic kidney disease, stage 3 (moderate) (3) Hypothyroid Current Visit: Yes Status: Chronic Qualifiers: Hypothyroidism type: unspecified Qualified Code(s): E03.9 - Hypothyroidism , unspecified (4) UTI (urinary tract infection) Current Visit: Yes Status: Acute Qualifiers: Urinary tract infection type: site unspecified Hematuria presence: without hematuria Qualified Code(s): N39.0 - Urinary tract infection, site not specified (5) Sepsis Current Visit: Yes Status: Acute Qualifiers: Sepsis type: sepsis due to unspecified organism Qualified Code(s): A41.9 - Sepsis, unspecified organism (6) Elevated troponin Current Visit: Yes Status: Resolved (7) Mgpou-dt-mscdmre kidney injury Current Visit: Yes Status: Resolved (8) COPD (chronic obstructive pulmonary disease) Current Visit: Yes Status: Chronic Assessment and plan: 81 y/o female with c/r respiratory failure, vent dependent, admitted to the hospital with sepsis secondary to UTI. Patient improved clinically and was awaiting transfer yesterday, when she became hypoxic while getting tarnsferred by EMS. # Severe sepsis secondary to UTI: On abx to be continued on d/c , scripts provided # Hypoxic resp failure with c/r vent dependece: Currently back to baseline # Leukocytosis: No potential source of infection, likely related to stress from events yesterday. Labs to be repeated follwoing d/c. # Acute on Chronic Kidney failure: Improving, monitor closely # Hypothyroidism: cotninue home meds # DM Type 2 with complications, continue home meds Qualifiers: COPD type: unspecified COPD Qualified Code(s): J44.9 - Chronic obstructive pulmonary disease, unspecified - Time Spent With Patient 25 - 35 minutes - Subjective Interval history: Seen adn examined at bedside. Patient aleert and orineted without any complicants. Remains on AC/VC mode Vent FiO2 at 30% maintaining saturations. No further hypoxic episodes. peak pressures at 40 with plateau of 14. - Constitutional Vitals: Temp Pulse Resp BP Pulse Ox 98.6 F 107 14 144/81 95 06/08/16 11:01 06/08/16 12:01 06/08/16 12:01 06/08/16 11:01 06/08/16 11:01 General appearance: Present: A&O X 3, answers questions appropriately - Other Additional findings: General: Alert and oriented Resp: On mech Ventillation with above mentioned settings, air entry good b/l Cardiac: Normal heart sounds GI: soft , non tender MSK: no deformity Skin: No rashes Neuro: no new focal deficits Internal Medicine: Result - Labs CBC & Chem 7: 06/08/16 04:05 06/08/16 04:05 Labs: Short CBC 06/08/16 Range/Units 04:05 WBC 15.2 H (4.3-11.1) K/mcL Hgb 10.6 L (11.5-15.4) g/dL Hct 33.9 L (35.3-44.9) % Plt Count 242 (140-400) K/mcL Neutrophils # 11.5 H (1.6-8.9) K/mcL BMP 06/08/16 04:05 Sodium 138 Potassium 3.8 Chloride 106 Carbon Dioxide 25 BUN 20 Creatinine 1.36 H Glucose 103 H Calcium 8.7 - Impressions Impressions Chest X-Ray 06/08/16 08:15 IMPRESSION: 1. Stable tracheostomy tube. 2. Stable bibasilar airspace disease, unchanged from 06/03/2016. D/ / Alex Lara MD / Alex Lara MD Interpreting Provider: Alex Lara MD Consult Discharge Plan - Plan Instructions: Urinary Tract Infection in Women (DC) Additional Instructions: Follow-up with primary care provider in one to 2 weeks Referrals: NO,PCP [Primary Care Provider] - (PATIENT IS FROM [facility] NO PCP APPOINTMENT ) Prescriptions: Cephalexin [Keflex] 500 mg PO BID #22 capsule
--- NOTE | 2016-06-11 19:23 | Electrocardiograph Report ---
[place] [id number] Test Date: 2016-06-07 Pat Name: Eve Moses Department: 110 Room: 2N02 Gender: F [employer]er: : [id number] Requested By: Deidre Mc Order Number: [id number] Reading MD: Tanenr Thompson MD Measurements Intervals [place] Rate: 126 P: DC: 0 QRS: 6 QRSD: 79 T: 43 QT: 388 QTc: 463 Interpretive Statements SUPRAVENTRICULAR TACHYCARDIA BASELINE ARTIFACT NONSPECIFIC ST \T\ T-WAVE ABNORMALITY ABNORMAL RHYTHM ECG INTERPRETATION BASED ON A DEFAULT AGE OF 40 YEARS Electronically Signed On 06-11-2016 19:21:53 EDT by Tanner Thompson MD
== END 2016-06-08 16:55 | DRG 698 ==
LOC: 2NNU 17:39 → EMEROO 17:39 → 2NNU 23:01 → SUATTDRO 23:32
PROVIDERS: ADMIT Pediatrics; ATTEND Internal Medicine